=== PATIENT | female | born 1935 | race Caucasian/White ===

== ENCOUNTER 2019-04-21 08:47 | Outpatient (CLI) | payer MEDICARE, SELFPAY ==
[2019-04-21] MEDS: ZOLEDRONIC ACID 5 MG/100 ML 100 ML 300 MG IVPB (09:11)
--- NOTE | 2019-04-21 09:45 | PC.NURSE ---
IV INFUSION COMPLETE. PT DISCHARGED TO HOME. SAFE EXIT OF HOSPITAL.
== END 2019-04-21 08:48 | disposition home or self-care (01) ==
PROVIDERS: PCP Internal Medicine; Visit Provider Internal Medicine
DX: M81.0 Age-related osteoporosis without current pathological fracture (principal)
CPT/HCPCS: 96365; J3489

== ENCOUNTER 2019-08-18 13:20 | Outpatient (CLI) | payer MEDICARE, SELFPAY ==
--- NOTE | ~2019-08-18 | US_ITS ---
EXAMINATION: US carotid duplex BI DATE: 08/18/2019 14:05 INDICATION: Carotid stenosis. TECHNIQUE: Grayscale, color Doppler, and pulsed Doppler images of the cervical carotid arteries were obtained. The degree of vessel stenosis is placed in one of the following categories: normal, <50%, 5 0-69%, >=70% but less than near-occlusion, near-occlusion, or total occlusion. Note that percent sten osis relative to normal distal artery lumen diameter is indirectly measured from velocity measurement s as described by Last, et al. Radiology 2003; 229:340-346. COMPARISON: None. FINDINGS: RIGHT: The right common carotid artery (CCA) peak systolic velocity (PSV) is 100 cm/s. The right internal ca rotid artery (ICA) PSV is 123 cm/s. The right ICA end-diastolic velocity (EDV) is 21 cm/s. The right ICA/CCA PSV ratio is 1.2. Grayscale and color Doppler images yield an estimate of <50% diameter reduc tion from plaque in the ICA. There is antegrade flow in the right vertebral artery. LEFT: The left CCA PSV is 121 cm/s. The left ICA PSV is 114 cm/s. The left ICA EDV is 25 cm/s. The left ICA /CCA PSV ratio is 0.9. Grayscale and color Doppler images yield an estimate of <50% diameter reductio n from plaque in the ICA. There is antegrade flow in the left vertebral artery. IMPRESSION: 1. <50% stenosis in the right internal carotid artery. 2. <50% stenosis in the left internal carotid artery. Reviewed, dictated and finalized at location A.
== END 2019-08-18 13:21 | disposition home or self-care (01) ==
LOC: CHSIMG 13:22
PROVIDERS: PCP Internal Medicine; Visit Provider Internal Medicine
DX: I65.23 Occlusion and stenosis of bilateral carotid arteries (principal)
CPT/HCPCS: 93880

== ENCOUNTER 2019-12-13 07:50 | Outpatient (CLI) | payer MEDICARE, SELFPAY ==
[2019-12-13 08:01] LABS: Basophils Absolute Auto 0.08 K/mm3 (0.00-0.10); Basophils Percent Auto 1.1 % (0.0-1.0); Eosinophils Absolute Auto 0.21 K/mm3 (0.02-0.50); Hematocrit 42.6 % (35.0-42.0); Hemoglobin 13.7 g/dL (11.7-13.8); Immature Granulocyte Absolute 0.02 K/mm3 (0.00-0.00); Immature Granulocyte Percent A 0.3 % (0.0-0.0); Lymphocytes Absolute Auto 1.98 K/mm3 (1.10-4.50); Lymphocytes Percent Auto 28.1 % (18.0-42.0); Mean Corpuscular HGB Conc 32.2 g/dL (32.0-36.0); Mean Corpuscular Volume 90.3 fL (78.0-102.0); Mean Platelet Volume 10.7 fl (9.2-11.8); Monocytes Absolute Auto 0.48 K/mm3 (0.10-0.90); Monocytes Percent Auto 6.8 % (2.0-11.0); Neutrophils Absolute Auto 4.3 K/mm3 (1.7-7.2); Neutrophils Percent Auto 60.7 % (50.0-70.0); Platelet Count Result 191 K/mm3 (150-420); Red Blood Count 4.72 M/mm3 (4.20-5.40); Red Cell Distribution Width 13.4 % (11.6-14.4); White Blood Count 7.1 K/mm3 (4.8-10.8)
[2019-12-13 08:03] LABS: Appearance Urine Cloudy (Clear); Bilirubin Urine Negative (Negative); Color Urine Yellow (Yellow); Glucose Urine UA Negative (Negative); Ketones Urine Negative (Negative); Leukocyte Esterase Ur 3+ (Negative); Nitrate Urine Negative (Negative); Protein Urine Negative (Negative); Urobilinogen Urine 0.2 mg/dL (0.2-1.0)
[2019-12-13 08:09] LABS: Add Urine Microscopic? YES; Blood Urine Trace-Intact (Negative)
[2019-12-13 08:10] LABS: Bacteria Urine 4+ /hpf; Squamous Epithelial Cell Urine Many /hpf (Few); WBC Urine >75 /hpf (0-3)
[2019-12-13 08:13] LABS: Creatinine Urine 164.13 mg/dL (40-278); MALB Creatinine Ratio 42.1 mg/g (0-30); Microalbumin Urine Random 69.2 mg/L
[2019-12-13 09:19] LABS: Alanine Aminotransferase 26 U/L (14-59); Albumin Level 3.9 g/dL (3.4-5.0); Alkaline Phosphatase 44 U/L (46-116); Anion Gap 10 mmol/L (8-16); Aspartate Amino Transferase 12 U/L (15-37); Bilirubin,Total 0.3 mg/dL (0.00-1.00); Blood Urea Nitrogen 19 mg/dL (7-18); Calcium 8.8 mg/dL (8.5-10.1); Carbon Dioxide 29 mmol/L (21-32); Chloride 104 mmol/L (98-108); Cholesterol 137 mg/dL (0-200); Creatine Kinase 45 U/L (26-192); Estimated Glomerular Filt Rate 30; Glucose 92 mg/dL (70-99); HDL Direct 42 mg/dL (40-60); LDL Cholesterol Calculated 80 mg/dL (<130); Osmolality Calculated 298 mOsm/kg (285-295); Potassium 4.3 mmol/L (3.5-5.1); Sodium 143 mmol/L (136-145); Total Protein 6.8 g/dL (6.4-8.2); Triglycerides 73 mg/dL (0-150)
[2019-12-16 11:46] LABS: Vitamin D 25 Hydroxy 41 ng/mL (30-100)
== END 2019-12-13 07:51 | disposition home or self-care (01) ==
LOC: CHSLAB 07:52
PROVIDERS: PCP Internal Medicine; Visit Provider Internal Medicine
DX: I12.9 Hypertensive chronic kidney disease with stage 1 through stage 4 chronic kidney disease, or unspecified chronic kidney disease (principal); E11.22 Type 2 diabetes mellitus with diabetic chronic kidney disease; N18.2 Chronic kidney disease, stage 2 (mild); E11.65 Type 2 diabetes mellitus with hyperglycemia; E78.2 Mixed hyperlipidemia; M81.0 Age-related osteoporosis without current pathological fracture
CPT/HCPCS: 36415; 80053; 80061; 81001; 82043; 82306; 82550; 83036; 85025

== ENCOUNTER 2020-01-18 12:16 | Outpatient (CLI) | payer MEDICARE, SELFPAY ==
[2020-01-18 12:57] LABS: Anion Gap 10 mmol/L (8-16); Blood Urea Nitrogen 19 mg/dL (7-18); Calcium 8.9 mg/dL (8.5-10.1); Carbon Dioxide 27 mmol/L (21-32); Chloride 99 mmol/L (98-108); Estimated Glomerular Filt Rate 32; Glucose 186 mg/dL (70-99); Osmolality Calculated 289 mOsm/kg (285-295); Potassium 4.1 mmol/L (3.5-5.1); Sodium 136 mmol/L (136-145)
== END 2020-01-18 12:17 | disposition home or self-care (01) ==
LOC: CHSLAB 12:17
PROVIDERS: PCP Internal Medicine; Visit Provider Internal Medicine
DX: N18.30 Chronic kidney disease, stage 3 unspecified (principal)
CPT/HCPCS: 36415; 80048

== ENCOUNTER 2020-03-20 09:33 | Outpatient (CLI) | payer MEDICARE, SELFPAY ==
[2020-03-20 10:14] LABS: Anion Gap 7 mmol/L (8-16); Blood Urea Nitrogen 16 mg/dL (7-18); Calcium 8.4 mg/dL (8.5-10.1); Carbon Dioxide 30 mmol/L (21-32); Chloride 103 mmol/L (98-108); Estimated Glomerular Filt Rate 32; Glucose 214 mg/dL (70-99); Osmolality Calculated 297 mOsm/kg (285-295); Potassium 3.9 mmol/L (3.5-5.1); Sodium 140 mmol/L (136-145)
== END 2020-03-20 09:34 | disposition home or self-care (01) ==
LOC: CHSLAB 09:35
PROVIDERS: PCP Internal Medicine; Visit Provider Internal Medicine
DX: R79.89 Other specified abnormal findings of blood chemistry (principal)
CPT/HCPCS: 36415; 80048

== ENCOUNTER 2020-06-10 07:59 | Outpatient (CLI) | payer MEDICARE, SELFPAY ==
[2020-06-10 08:12] LABS: Appearance Urine Cloudy (Clear); Bilirubin Urine 1+ (Negative); Color Urine Yellow (Yellow); Glucose Urine UA Negative (Negative); Ketones Urine Trace (Negative); Leukocyte Esterase Ur 2+ (Negative); Nitrate Urine Negative (Negative); Protein Urine Trace (Negative); Specific Grav Ur >= 1.030 (1.010-1.020); Urobilinogen Urine 0.2 mg/dL (0.2-1.0)
[2020-06-10 08:13] LABS: Basophils Absolute Auto 0.09 K/mm3 (0.00-0.10); Basophils Percent Auto 1.3 % (0.0-1.0); Eosinophils Absolute Auto 0.19 K/mm3 (0.02-0.50); Eosinophils Percent Auto 2.7 % (1.0-6.0); Hematocrit 42.3 % (35.0-42.0); Hemoglobin 13.8 g/dL (11.7-13.8); Immature Granulocyte Absolute 0.01 K/mm3 (0.00-0.00); Immature Granulocyte Percent A 0.1 % (0.0-0.0); Lymphocytes Absolute Auto 1.96 K/mm3 (1.10-4.50); Lymphocytes Percent Auto 27.4 % (18.0-42.0); Mean Corpuscular HGB Conc 32.6 g/dL (32.0-36.0); Mean Corpuscular Hemoglobin 28.7 pg (27.0-31.0); Mean Corpuscular Volume 87.9 fL (78.0-102.0); Mean Platelet Volume 11.2 fl (9.2-11.8); Monocytes Absolute Auto 0.48 K/mm3 (0.10-0.90); Monocytes Percent Auto 6.7 % (2.0-11.0); Neutrophils Absolute Auto 4.4 K/mm3 (1.7-7.2); Neutrophils Percent Auto 61.8 % (50.0-70.0); Platelet Count Result 177 K/mm3 (150-420); Red Blood Count 4.81 M/mm3 (4.20-5.40); Red Cell Distribution Width 13.7 % (11.6-14.4); White Blood Count 7.2 K/mm3 (4.8-10.8)
[2020-06-10 08:17] LABS: Add Urine Microscopic? YES; Bacteria Urine 2+ /hpf; Blood Urine Trace-Lysed (Negative); Squamous Epithelial Cell Urine Many /hpf (Few); WBC Urine 31-50 /hpf (0-3)
[2020-06-10 08:30] LABS: Hemoglobin A1C 7.7 % (<5.7); MALB Creatinine Ratio 20.8 mg/g (0-30); Microalbumin Urine Random 77.9 mg/L
[2020-06-10 10:14] LABS: Alanine Aminotransferase 26 U/L (14-59); Albumin Level 3.7 g/dL (3.4-5.0); Alkaline Phosphatase 51 U/L (46-116); Anion Gap 9 mmol/L (8-16); Aspartate Amino Transferase 15 U/L (15-37); Bilirubin,Total 0.5 mg/dL (0.00-1.00); Blood Urea Nitrogen 24 mg/dL (7-18); Calcium 8.7 mg/dL (8.5-10.1); Carbon Dioxide 27 mmol/L (21-32); Chloride 105 mmol/L (98-108); Cholesterol 155 mg/dL (0-200); Estimated Glomerular Filt Rate 32; Glucose 85 mg/dL (70-99); HDL Direct 41 mg/dL (40-60); LDL Cholesterol Calculated 100 mg/dL (<130); Osmolality Calculated 295 mOsm/kg (285-295); Potassium 4.1 mmol/L (3.5-5.1); Sodium 141 mmol/L (136-145); Total Protein 6.6 g/dL (6.4-8.2); Triglycerides 72 mg/dL (0-150)
[2020-06-13 16:56] LABS: Vitamin D 25 Hydroxy 41 ng/mL (30-100)
== END 2020-06-10 08:00 | disposition home or self-care (01) ==
LOC: CHSLAB 08:01
PROVIDERS: PCP Internal Medicine; Visit Provider Internal Medicine
DX: I10 Essential (primary) hypertension (principal); E78.2 Mixed hyperlipidemia; E11.9 Type 2 diabetes mellitus without complications; M81.0 Age-related osteoporosis without current pathological fracture
CPT/HCPCS: 36415; 80053; 80061; 81001; 82043; 82306; 83036; 85025

== ENCOUNTER 2020-06-19 10:28 | Outpatient (CLI) | payer MEDICARE, SELFPAY ==
--- NOTE | ~2020-06-19 | DEXA_ITS ---
Bone Density Report Name: Marly Ha Age: 84 Sex: Female Ethnicity: White Date of : 1935 Indication: osteopenia; Referring Provider: Charlee Leone Study: Bone densitometry was performed. Exam Date: June 19, 2020 Accession number: [id number] Bone Density: Region BMD T-score Z-score Classification AP Spine(L1, L2, L3) 1.018 0.0 2.7 Normal Femoral Neck (Left) 0.775 -0.7 1.8 Normal Total Hip (Left) 0.789 -1.3 1.0 Osteopenia Femoral Neck (Right) 0.700 -1.3 1.1 Osteopenia Total Hip (Right) 0.788 -1.3 1.0 Osteopenia Femoral Neck Mean 0.737 -1.0 1.5 Normal Total Hip Mean 0.789 -1.3 1.0 Osteopenia World Health Organization criteria for BMD impression classify patients as: Normal (T-score at or above -1.0), Osteopenia (T-score between -1.0 and -2.5), or Osteoporosis (T-score at or below -2.5). 10-year Fracture Risk(1): Major Osteoporotic Fracture 12% Hip Fracture 3.1% Reported Risk Factors: [place] (), Neck BMD=0.700, BMI=22.9 (1) FRAX(R) Version 3.08. Fracture probability calculated for an untreated patient. Fracture probability may be lower if the patient has received treatment. Previous Exams: Region Exam Age BMD T-score BMD Change BMD Change Date g/cm2 vs Baseline vs Previous AP Spine (L1-L3) 06/19/2020 84 1.018 0.0 -0.007 (-0.7%) 0.001 (0.1%)# 03/04/2018 82 1.017 0.0 -0.008 (-0.8%) -0.010 (-1.0%) 01/06/2010 74 1.027 0.1 0.003 (0.3%)! 0.003 (0.3%) 06/08/2006 70 1.025 0.1 Total Hip(Left) 06/19/2020 84 0.789 -1.3 -0.044 (-5.3%) 0.041 (5.4%)# 03/04/2018 82 0.748 -1.6 -0.084 (-10.1% -0.062 (-7.6%) 01/06/2010 74 0.810 -1.1 -0.023 (-2.7%) -0.023 (-2.7%) 06/08/2006 70 0.832 -0.9 Total Hip(Right) 06/19/2020 84 0.788 -1.3 -0.079 (-9.1%) 0.002 (0.2%)# 03/04/2018 82 0.787 -1.3 -0.081 (-9.3%) -0.068 (-7.9%) 01/06/2010 74 0.855 -0.7 -0.013 (-1.5%) -0.013 (-1.5%) 06/08/2006 70 0.868 -0.6 *Denotes significance at 95% confidence level, LSC for AP Spine = 0.022 g/cm2, LSC for Total Hip = 0.027 g/cm2 # Denotes dissimilar scan types or analysis methods Clinical Information Provided by Patient: Drinks caffeinated beverages Onset of menses at age 18 Number of children 3 Impression: The patient has low bone mass, based on the Left Total Hip T-score. No significant bone loss was observed. Discussion: BONE DENSITY
== END 2020-06-19 10:29 | disposition home or self-care (01) ==
LOC: CHSIMG 10:29
PROVIDERS: PCP Internal Medicine; Visit Provider Internal Medicine
DX: M81.0 Age-related osteoporosis without current pathological fracture (principal)
CPT/HCPCS: 77080

== ENCOUNTER 2020-12-11 09:25 | Outpatient (CLI) | payer MEDICARE, SELFPAY ==
[2020-12-11 09:39] LABS: Hematocrit 41.6 % (35.0-42.0); Hemoglobin 13.8 g/dL (11.7-13.8); Mean Corpuscular HGB Conc 33.2 g/dL (32.0-36.0); Mean Corpuscular Hemoglobin 29.2 pg (27.0-31.0); Mean Corpuscular Volume 88.1 fL (78.0-102.0); Mean Platelet Volume 10.7 fl (9.2-11.8); Platelet Count Result 193 K/mm3 (150-420); Red Blood Count 4.72 M/mm3 (4.20-5.40); Red Cell Distribution Width 13.2 % (11.6-14.4); White Blood Count 8.3 K/mm3 (4.8-10.8)
[2020-12-11 09:43] LABS: Appearance Urine Sl Cloudy (Clear); Bilirubin Urine Negative (Negative); Color Urine Yellow (Yellow); Glucose Urine UA Negative (Negative); Ketones Urine Trace (Negative); Leukocyte Esterase Ur 2+ (Negative); Nitrate Urine Negative (Negative); Protein Urine Negative (Negative); Specific Grav Ur >= 1.030 (1.010-1.020); Urobilinogen Urine 0.2 mg/dL (0.2-1.0); pH Urine 5.5 (5.0-8.0)
[2020-12-11 09:50] LABS: Add Urine Microscopic? YES; Blood Urine Trace (Negative); RBC Urine 0-2 /hpf (0-2); Squamous Epithelial Cell Urine Many /hpf (Few); WBC Urine 21-30 /hpf (0-3)
[2020-12-11 09:51] LABS: Bacteria Urine 1+ /hpf
[2020-12-11 09:53] LABS: MALB Creatinine Ratio 15.5 mg/g (0-30); Microalbumin Urine Random 49.9 mg/L
[2020-12-11 09:54] LABS: Hemoglobin A1C 7.5 % (<5.7)
[2020-12-11 10:53] LABS: Alanine Aminotransferase 31 U/L (14-59); Albumin Level 3.8 g/dL (3.4-5.0); Alkaline Phosphatase 57 U/L (46-116); Anion Gap 11 mmol/L (8-16); Aspartate Amino Transferase 12 U/L (15-37); Bilirubin,Total 0.4 mg/dL (0.00-1.00); Blood Urea Nitrogen 32 mg/dL (7-18); Calcium 8.7 mg/dL (8.5-10.1); Carbon Dioxide 28 mmol/L (21-32); Chloride 106 mmol/L (98-108); Cholesterol 157 mg/dL (0-200); Creatine Kinase 49 U/L (26-192); Estimated Glomerular Filt Rate 31; Glucose 112 mg/dL (70-99); HDL Direct 36 mg/dL (40-60); LDL Cholesterol Calculated 106 mg/dL (<130); Osmolality Calculated 307 mOsm/kg (285-295); Potassium 4.1 mmol/L (3.5-5.1); Sodium 145 mmol/L (136-145); Total Protein 7.3 g/dL (6.4-8.2); Triglycerides 73 mg/dL (0-150)
== END 2020-12-11 09:26 | disposition home or self-care (01) ==
LOC: CHSLAB 09:29
PROVIDERS: PCP Internal Medicine; Visit Provider Internal Medicine
DX: E11.65 Type 2 diabetes mellitus with hyperglycemia (principal); I12.9 Hypertensive chronic kidney disease with stage 1 through stage 4 chronic kidney disease, or unspecified chronic kidney disease; N18.30 Chronic kidney disease, stage 3 unspecified; E78.2 Mixed hyperlipidemia; M81.0 Age-related osteoporosis without current pathological fracture
CPT/HCPCS: 36415; 80053; 80061; 81001; 82043; 82550; 83036; 85027

== ENCOUNTER 2021-01-22 09:54 | Outpatient (CLI) | payer MEDICARE, SELFPAY ==
[2021-01-22 10:14] VITALS: BP 163/48; PULSE 83; RESP 18; TEMP 36; O2SAT 97; BMI 22.6
[2021-01-22] MEDS: ZOLEDRONIC ACID 5 MG/100 ML 100 ML 400 MG IVPB (10:16)
--- NOTE | 2021-01-22 10:41 | PC.NURSE ---
Patient here for iv infusion of Reclast. 22#gauge IV started in right AC. Infusion ran over 20mins. Patient tolerated well. Educated patient on side effects and when to call the physician. Patient verbalized understanding. After 20mins, flushed IV site with 10cc NS then removed IV catheter. Patient denies and side effects. Tolerated infusion well. Patient safely left OP treatment room independently.
== END 2021-01-22 09:55 | disposition home or self-care (01) ==
LOC: CHSTREATRM 09:59
PROVIDERS: PCP Internal Medicine; Visit Provider Internal Medicine
DX: M81.0 Age-related osteoporosis without current pathological fracture (principal)
CPT/HCPCS: 96365; J3489

== ENCOUNTER 2021-06-26 08:11 | Outpatient (CLI) | payer MEDICARE, SELFPAY ==
[2021-06-26 08:25] LABS: Basophils Absolute Auto 0.09 K/mm3 (0.00-0.10); Basophils Percent Auto 1.2 % (0.0-1.0); Eosinophils Absolute Auto 0.17 K/mm3 (0.02-0.50); Eosinophils Percent Auto 2.4 % (1.0-6.0); Hematocrit 40.7 % (35.0-42.0); Hemoglobin 13.2 g/dL (11.7-13.8); Immature Granulocyte Absolute 0.02 K/mm3 (0.00-0.00); Immature Granulocyte Percent A 0.3 % (0.0-0.0); Lymphocytes Absolute Auto 2.18 K/mm3 (1.10-4.50); Lymphocytes Percent Auto 30.2 % (18.0-42.0); Mean Corpuscular HGB Conc 32.4 g/dL (32.0-36.0); Mean Corpuscular Hemoglobin 29.8 pg (27.0-31.0); Mean Corpuscular Volume 91.9 fL (78.0-102.0); Mean Platelet Volume 10.9 fl (9.2-11.8); Monocytes Absolute Auto 0.57 K/mm3 (0.10-0.90); Monocytes Percent Auto 7.9 % (2.0-11.0); Neutrophils Absolute Auto 4.2 K/mm3 (1.7-7.2); Platelet Count Result 185 K/mm3 (150-420); Red Blood Count 4.43 M/mm3 (4.20-5.40); Red Cell Distribution Width 13.6 % (11.6-14.4); White Blood Count 7.2 K/mm3 (4.8-10.8)
[2021-06-26 08:27] LABS: Appearance Urine Slightly Cloudy (Clear); Bilirubin Urine Negative (Negative); Color Urine Light Yellow (Yellow); Glucose Urine UA Negative (Negative); Ketones Urine Negative (Negative); Leukocyte Esterase Ur 2+ (Negative); Nitrate Urine Negative (Negative); Protein Urine Negative (Negative); Specific Grav Ur >= 1.030 (1.010-1.020); Urobilinogen Urine 0.2 mg/dL (0.2-1.0)
[2021-06-26 08:30] LABS: Add Urine Microscopic? YES; Bacteria Urine Trace /hpf; Blood Urine Trace-Intact (Negative); RBC Urine 0-2 /hpf (0-2); Squamous Epithelial Cell Urine Moderate /hpf (Few)
[2021-06-26 08:48] LABS: Creatinine Urine 232.72 mg/dL (40-278); Microalbumin Urine Random 42.1 mg/L
[2021-06-26 08:49] LABS: Hemoglobin A1C 7.3 % (<5.7)
[2021-06-26 09:10] LABS: Alanine Aminotransferase 24 U/L (14-59); Albumin Level 3.7 g/dL (3.4-5.0); Alkaline Phosphatase 51 U/L (46-116); Anion Gap 7 mmol/L (8-16); Aspartate Amino Transferase 13 U/L (15-37); Bilirubin,Total 0.3 mg/dL (0.00-1.00); Blood Urea Nitrogen 21 mg/dL (7-18); Calcium 8.6 mg/dL (8.5-10.1); Carbon Dioxide 27 mmol/L (21-32); Chloride 107 mmol/L (98-108); Cholesterol 141 mg/dL (0-200); Creatine Kinase 61 U/L (26-192); Estimated Glomerular Filt Rate 32; Glucose 77 mg/dL (70-99); HDL Direct 39 mg/dL (40-60); LDL Cholesterol Calculated 92 mg/dL (<130); Osmolality Calculated 294 mOsm/kg (285-295); Potassium 4.1 mmol/L (3.5-5.1); Sodium 141 mmol/L (136-145); Total Protein 6.9 g/dL (6.4-8.2); Triglycerides 48 mg/dL (0-150)
[2021-07-01 20:08] LABS: Vitamin D 25 Hydroxy 42 ng/mL (30-100)
== END 2021-06-26 08:12 | disposition home or self-care (01) ==
PROVIDERS: PCP Internal Medicine; Visit Provider Internal Medicine
DX: E78.2 Mixed hyperlipidemia (principal); I12.9 Hypertensive chronic kidney disease with stage 1 through stage 4 chronic kidney disease, or unspecified chronic kidney disease; N18.30 Chronic kidney disease, stage 3 unspecified; E11.65 Type 2 diabetes mellitus with hyperglycemia
CPT/HCPCS: 36415; 80053; 80061; 81001; 82043; 82306; 82550; 83036; 85025

== ENCOUNTER 2021-08-14 13:42 | Outpatient (CLI) | payer MEDICARE, SELFPAY ==
--- NOTE | 2021-08-14 13:45 | ECG_ITS ---
Measurements Intervals Lucas Rate: 92 P: 64 AK: 175 QRS: 119 QRSD: 130 T: 9 QT: 388 QTc: 482 Interpretive Statements SINUS RHYTHM RIGHT BUNDLE BRANCH BLOCK LEFT POSTERIOR FASCICULAR BLOCK BASELINE ARTIFACT- I, II, III, AVR, AVL, AVF ABNORMAL ECG Electronically Signed On 08-14-2021 14:00:07 CDT by Brad Rene D.O.
== END 2021-08-14 13:43 | disposition home or self-care (01) ==
PROVIDERS: PCP Internal Medicine; Visit Provider Internal Medicine Cardiovascular Disease
DX: R06.00 Dyspnea, unspecified (principal)
CPT/HCPCS: 93005

== ENCOUNTER 2021-09-17 06:56 | Outpatient (CLI) | payer MEDICARE, SELFPAY ==
--- NOTE | ~2021-09-17 | NM_ITS ---
EXAMINATION: NM ant stress w perfusion DATE: 09/17/2021 10:11 INDICATION: Dyspnea on exertion. TECHNIQUE: Rest images were obtained following intravenous administration of 12.5 mCi Tc99m tetrofosm in (Myoview). The patient was infused intravenously with Lexiscan (regadenoson). Then, 30 mCi Tc99m t etrofosmin (Myoview) was administered intravenously, and stress images were obtained. Data was recons tructed into short axis and horizontal and vertical long axis SPECT images. Gated SPECT images were a lso obtained. COMPARISON: None. FINDINGS: There is no definite reversible or fixed perfusion abnormality to suggest ischemia or infar ction. There is no segmental wall motion abnormality. Left ventricular ejection fraction measures > 70%. IMPRESSION: 1. No definite ischemia or infarct. 2. Normal left ventricular ejection fraction measuring >70%. Reviewed, dictated and finalized at location A.
--- NOTE | 2021-09-17 07:03 | ECHO_ITS ---
Patient Info Name: Marly Ha Age: 85 years : 1935 Gender: Female Ht: 62 in Wt: 127 lbs BSA: 1.59 m2 HR: 85 bpm BP: 147 / 79 mmHg Heart Rhythm: Sinus Rhythm Technical Quality: Fair Exam Date: 09/17/2021 7:18 AM Exam Location: [facility] Patient Status: Outpatient Admit Date: 09/17/2021 Staff Ordering Physician: Brad Rene DO Dog Control Officer: Josy Rodríguez RDCS Attending Provider: Brad Rene DO Referring Physician: Edgard WARE; Exam Type: CA echo doppler color flow Study Info Indications R06.00 - Dyspnea, unspecified Complete two-dimensional, color flow and Doppler transthoracic echocardiogram is performed. Summary 1. Complete two-dimensional, color flow and Doppler transthoracic echocardiogram is performed. 2. Left ventricular chamber dimension is normal. 3. Left ventricular systolic function is normal, estimated at 60-65%. 4. The left ventricular diastolic function is grade I diastolic dysfunction. 5. E/e' 11 is mildly elevated. 6. There is mild aortic valve sclerosis. 7. There is trace mitral valve regurgitation. 8. No pulmonary hypertension, estimated pulmonary arterial systolic pressure is 26 mmHg. Left Ventricle E/e' 11 is mildly elevated. Left ventricular chamber dimension is normal. Left ventricular systolic function is normal, estimated at 60-65%. The left ventricular diastolic function is grade I diastolic dysfunction. Right Ventricle Right ventricular systolic function is normal and with normal TAPSE 2.1 cm. Right ventricular chamber dimension is normal. Left Atria Left atrial chamber dimension is normal. Right Atria Right atrial chamber dimension is normal. Aortic Valve The aortic valve is trileaflet. There is mild aortic valve sclerosis. There is no aortic valve stenosis. There is no aortic valve regurgitation. Pulmonic Valve There is no pulmonic regurgitation. Mitral Valve There is no mitral valve stenosis. There is trace mitral valve regurgitation. Tricuspid Valve There is no tricuspid valve regurgitation. No pulmonary hypertension, estimated pulmonary arterial systolic pressure is 26 mmHg. Pericardium/Pleural There is no pericardial effusion. Inferior Vena Cava Normal inferior vena cava with >50% collapse upon inspiration consistent with normal right atrial pressure, 5 mmHg. Aorta The aortic root size at the sinus of Valsalva is normal. Left Ventricular Outflow Tract Name Value Normal LVOT 2D LVOT Diameter 2.0 cm LVOT Doppler LVOT Peak Gradient 3 mmHg LVOT Mean Gradient 1 mmHg LVOT VTI 19 cm LVOT VTI/AV VTI Ratio 0.7 LVOT Stroke Volume 59 ml LVOT CO 10.5 l/min LVOT CI 6.6 l/min/m2 Pulmonic Valve Name Value Normal RVOT
--- NOTE | 2021-09-17 07:32 | EST_ITS ---
Patient Info Name: Marly Ha Age: 85 years : 1935 Gender: Female Ht: 62 in Wt: 127 lbs BSA: 1.59 m2 HR: 73 bpm BP: 157 / 53 mmHg Heart Rhythm: Sinus Rhythm Exam Date: 09/17/2021 8:45 AM Exam Location: [facility] Stress Patient Status: Outpatient Admit Date: 09/17/2021 Staff Ordering Physician: Brad Rene DO Attending Provider: Brad Rene DO Exercise Technologist: Cristina Glover CT Exercise Physician: Brad Rene DO Exam Type: CA stress ant w NM Study Info Indications R06.09 - Other forms of dyspnea A regadenoson stress test was performed. Summary 1. 1. Negative lexiscan stress test for ischemic ST changes by ECG criteria. 2. 2. Baseline hypertension. 3. 3. Nuclear scan to follow and will be reported separately. Please correlate with it. 4. 4. Patient informed of the above results. Protocol: Lexiscan Stress ECG Details Stage: REST Duration (min): 4 min : 37 sec HR (bpm): 76 SBP (mmHg): 157 DBP (mmHg): 53 Stage: REST Duration (min): 9 min : 8 sec HR (bpm): 72 SBP (mmHg): 157 DBP (mmHg): 53 Stage: STAGE 1 Duration (min): 1 min : 0 sec HR (bpm): 96 SBP (mmHg): 157 DBP (mmHg): 53 Stage: RECOVERY Duration (min): 1 min : 0 sec HR (bpm): 95 SBP (mmHg): 162 DBP (mmHg): 46 Stage: RECOVERY Duration (min): 2 min : 0 sec HR (bpm): 94 SBP (mmHg): 162 DBP (mmHg): 46 Stage: RECOVERY Duration (min): 3 min : 0 sec HR (bpm): 90 SBP (mmHg): 150 DBP (mmHg): 49 Stage: RECOVERY Duration (min): 3 min : 53 sec HR (bpm): 90 SBP (mmHg): 150 DBP (mmHg): 49 Rest HR: 72 bpm Peak HR: 99 bpm Rest Sys BP: 157 mmHg Peak Sys BP: 162 mmHg Max Pred HR: 136 bpm % Max Pred HR: 73 % Target HR: 116 bpm Max RPP: 16,038 bpm*mmHg Termination Reason: Completed protocol Cardiac Symptoms: dizziness Total Time: 1 min : 0 sec Rest Davis BP: 53 mmHg Peak Davis BP: 46 mmHg Total Dose: 0.4 mg Resting ECG Sinus rhythm, RBBB. Stress ECG No ST changes. Arrhythmias None. Report Signatures
== END 2021-09-17 06:57 | disposition home or self-care (01) ==
PROVIDERS: PCP Internal Medicine; Visit Provider Internal Medicine Cardiovascular Disease
DX: I12.9 Hypertensive chronic kidney disease with stage 1 through stage 4 chronic kidney disease, or unspecified chronic kidney disease (principal); N18.31 Chronic kidney disease, stage 3a; R06.00 Dyspnea, unspecified; E83.51 Hypocalcemia; E87.6 Hypokalemia; R77.8 Other specified abnormalities of plasma proteins; I73.9 Peripheral vascular disease, unspecified
CPT/HCPCS: 78452; 93017; 93306; A9502; J2785

== ENCOUNTER 2021-12-16 07:49 | Outpatient (CLI) | payer MEDICARE, SELFPAY ==
[2021-12-16 08:08] LABS: Basophils Absolute Auto 0.07 K/mm3 (0.00-0.10); Basophils Percent Auto 1.2 % (0.0-1.0); Eosinophils Percent Auto 3.4 % (1.0-6.0); Hematocrit 38.4 % (35.0-42.0); Hemoglobin 12.8 g/dL (11.7-13.8); Immature Granulocyte Absolute 0.02 K/mm3 (0.00-0.00); Immature Granulocyte Percent A 0.3 % (0.0-0.0); Lymphocytes Absolute Auto 1.59 K/mm3 (1.10-4.50); Lymphocytes Percent Auto 26.7 % (18.0-42.0); Mean Corpuscular HGB Conc 33.3 g/dL (32.0-36.0); Mean Corpuscular Hemoglobin 29.4 pg (27.0-31.0); Mean Corpuscular Volume 88.3 fL (78.0-102.0); Mean Platelet Volume 10.8 fl (9.2-11.8); Monocytes Percent Auto 8.4 % (2.0-11.0); Neutrophils Absolute Auto 3.6 K/mm3 (1.7-7.2); Platelet Count Result 164 K/mm3 (150-420); Red Blood Count 4.35 M/mm3 (4.20-5.40); Red Cell Distribution Width 13.8 % (11.6-14.4)
[2021-12-16 08:11] LABS: Bilirubin Urine Negative (Negative); Glucose Urine UA Negative (Negative); Ketones Urine Trace (Negative); Leukocyte Esterase Ur 2+ (Negative); Nitrate Urine Negative (Negative); Protein Urine Negative (Negative); Specific Grav Ur >= 1.030 (1.010-1.020); Urobilinogen Urine 0.2 mg/dL (0.2-1.0)
[2021-12-16 08:15] LABS: Add Urine Microscopic? YES; Appearance Urine Slightly Cloudy (Clear); Bacteria Urine 1+ /hpf; Blood Urine Trace-Intact (Negative); Color Urine Yellow (Yellow); RBC Urine None seen /hpf (0-2); Squamous Epithelial Cell Urine Many /hpf (Few); WBC Urine 21-30 /hpf (0-3)
[2021-12-16 08:27] LABS: Hemoglobin A1C 7.2 % (<5.7)
[2021-12-16 09:02] LABS: Alanine Aminotransferase 23 U/L (14-59); Albumin Level 3.5 g/dL (3.4-5.0); Alkaline Phosphatase 50 U/L (46-116); Anion Gap 6 mmol/L (8-16); Aspartate Amino Transferase 11 U/L (15-37); Bilirubin,Total 0.3 mg/dL (0.00-1.00); Blood Urea Nitrogen 23 mg/dL (7-18); Calcium 8.3 mg/dL (8.5-10.1); Carbon Dioxide 28 mmol/L (21-32); Chloride 109 mmol/L (98-108); Cholesterol 151 mg/dL (0-200); Creatine Kinase 99 U/L (26-192); Estimated Glomerular Filt Rate 37; Free T3 2.69 pg/mL (2.18-3.98); Free T4 Free Thyroxine 1.12 ng/dL (0.76-1.46); Glucose 104 mg/dL (70-99); HDL Direct 42 mg/dL (40-60); LDL Cholesterol Calculated 92 mg/dL (<130); Osmolality Calculated 299 mOsm/kg (285-295); Sodium 143 mmol/L (136-145); Thyroid Stimulating Hormone 2.96 uIU/mL (0.36-3.74); Total Protein 6.4 g/dL (6.4-8.2); Triglycerides 84 mg/dL (0-150); Vitamin B12 542 pg/mL (193-986)
[2021-12-19 23:17] LABS: Vitamin D 25 Hydroxy 44 ng/mL (30-100)
== END 2021-12-16 07:50 | disposition home or self-care (01) ==
LOC: CHSLAB 07:52
PROVIDERS: PCP Internal Medicine; Visit Provider Internal Medicine
DX: M81.0 Age-related osteoporosis without current pathological fracture (principal); E11.610 Type 2 diabetes mellitus with diabetic neuropathic arthropathy; I10 Essential (primary) hypertension; E78.2 Mixed hyperlipidemia; E11.42 Type 2 diabetes mellitus with diabetic polyneuropathy
CPT/HCPCS: 36415; 80053; 80061; 81001; 82306; 82550; 82607; 83036; 84439; 84443; 84481; 85025

== ENCOUNTER 2022-01-27 13:36 | Outpatient (CLI) | payer MEDICARE, SELFPAY ==
--- NOTE | 2022-01-27 13:45 | PC.NURSE ---
PT to room 227 amb per self. A&Ox3. Pt has now complaints or questions. Plan of care explained. Oriented to room. Call vicente in reach. Reminded to call with needs.
[2022-01-27] MEDS: ZOLEDRONIC ACID 5 MG/100 ML 100 ML 400 MG IVPB (13:59)
--- NOTE | 2022-01-27 14:31 | PC.NURSE ---
Reclast infusion complete. Pt tolerated well. Has no complaints. Discharged to home amb per self.
== END 2022-01-27 13:37 | disposition home or self-care (01) ==
LOC: CHSTREATRM 13:40
PROVIDERS: PCP Internal Medicine; Visit Provider Internal Medicine
DX: M81.0 Age-related osteoporosis without current pathological fracture (principal)
CPT/HCPCS: 96365; J3489

== ENCOUNTER 2022-07-02 09:14 | Outpatient (CLI) | payer MEDICARE, SELFPAY ==
[2022-07-02 09:30] LABS: Basophils Absolute Auto 0.09 K/mm3 (0.00-0.10); Basophils Percent Auto 1.3 % (0.0-1.0); Eosinophils Absolute Auto 0.15 K/mm3 (0.02-0.50); Eosinophils Percent Auto 2.2 % (1.0-6.0); Hematocrit 42.8 % (35.0-42.0); Hemoglobin 13.8 g/dL (11.7-13.8); Immature Granulocyte Absolute 0.02 K/mm3 (0.00-0.00); Immature Granulocyte Percent A 0.3 % (0.0-0.0); Mean Corpuscular HGB Conc 32.2 g/dL (32.0-36.0); Mean Corpuscular Hemoglobin 28.7 pg (27.0-31.0); Mean Platelet Volume 10.2 fl (9.2-11.8); Monocytes Absolute Auto 0.44 K/mm3 (0.10-0.90); Monocytes Percent Auto 6.5 % (2.0-11.0); Neutrophils Absolute Auto 4.4 K/mm3 (1.7-7.2); Neutrophils Percent Auto 64.7 % (50.0-70.0); Platelet Count Result 200 K/mm3 (150-420); Red Blood Count 4.81 M/mm3 (4.20-5.40); Red Cell Distribution Width 13.5 % (11.6-14.4); White Blood Count 6.8 K/mm3 (4.8-10.8)
[2022-07-02 09:36] LABS: Appearance Urine Clear (Clear); Bilirubin Urine Negative (Negative); Blood Urine Negative (Negative); Color Urine Light Yellow (Yellow); Glucose Urine UA Negative (Negative); Ketones Urine Negative (Negative); Leukocyte Esterase Ur 2+ (Negative); Nitrate Urine Negative (Negative); Protein Urine Negative (Negative); Urobilinogen Urine 0.2 mg/dL (0.2-1.0); pH Urine 5.5 (5.0-8.0)
[2022-07-02 09:41] LABS: Creatinine Urine 122.08 mg/dL (40-278); MALB Creatinine Ratio 11.1 mg/g (0-30); Microalbumin Urine Random 13.6 mg/L
[2022-07-02 09:43] LABS: Hemoglobin A1C 7.4 % (<5.7)
[2022-07-02 09:50] LABS: Add Urine Microscopic? YES
[2022-07-02 09:51] LABS: Bacteria Urine 1+ /hpf; RBC Urine None seen /hpf (0-2); Renal Epithelial Cells Urine Few /hpf; Squamous Epithelial Cell Urine Few /hpf (Few); WBC Clumps Urine Present /hpf; WBC Urine 16-20 /hpf (0-3)
[2022-07-02 10:54] LABS: Alanine Aminotransferase 32 U/L (14-59); Albumin Level 3.7 g/dL (3.4-5.0); Alkaline Phosphatase 54 U/L (46-116); Anion Gap 8 mmol/L (8-16); Aspartate Amino Transferase 19 U/L (15-37); Bilirubin,Total 0.3 mg/dL (0.00-1.00); Blood Urea Nitrogen 25 mg/dL (7-18); Calcium 8.8 mg/dL (8.5-10.1); Carbon Dioxide 29 mmol/L (21-32); Chloride 108 mmol/L (98-108); Cholesterol 144 mg/dL (0-200); Creatine Kinase 62 U/L (26-192); Estimated Glomerular Filt Rate 33; Glucose 119 mg/dL (70-99); HDL Direct 40 mg/dL (40-60); LDL Cholesterol Calculated 85 mg/dL (<130); Osmolality Calculated 305 mOsm/kg (285-295); Potassium 4.4 mmol/L (3.5-5.1); Sodium 145 mmol/L (136-145); Total Protein 6.9 g/dL (6.4-8.2); Triglycerides 93 mg/dL (0-150)
== END 2022-07-02 09:15 | disposition home or self-care (01) ==
LOC: CHSLAB 09:18
PROVIDERS: PCP Internal Medicine; Visit Provider Internal Medicine
DX: I10 Essential (primary) hypertension (principal); E11.65 Type 2 diabetes mellitus with hyperglycemia; N18.2 Chronic kidney disease, stage 2 (mild); E78.2 Mixed hyperlipidemia
CPT/HCPCS: 36415; 80053; 80061; 81001; 82043; 82550; 83036; 85025

== ENCOUNTER 2022-07-31 11:41 | Outpatient (CLI) | payer MEDICARE, MEDICAID, SELFPAY ==
--- NOTE | ~2022-07-31 | DEXA_ITS ---
Bone Density Report Name: SIVA RAMIREZ Age: 86 Sex: Female Ethnicity: White Date of : 1935 Indication: postmenopausal; screening for osteoporosis; height loss; cancer; hysterectomy; Referring Provider: Charlee Leone Study: Bone densitometry was performed. Exam Date: July 31, 2022 Accession number: [id number] Bone Density: Region BMD T-score Z-score Classification AP Spine(L2, L3) 1.144 0.8 3.7 Normal Femoral Neck (Left) 0.738 -1.0 1.5 Normal Total Hip (Left) 0.793 -1.2 1.1 Osteopenia Femoral Neck (Right) 0.739 -1.0 1.5 Normal Total Hip (Right) 0.819 -1.0 1.3 Normal Femoral Neck Mean 0.738 -1.0 1.5 Normal Total Hip Mean 0.806 -1.1 1.2 Osteopenia World Health Organization criteria for BMD impression classify patients as: Normal (T-score at or above -1.0), Osteopenia (T-score between -1.0 and -2.5), or Osteoporosis (T-score at or below -2.5). 10-year Fracture Risk: FRAX not reported because: Treated for osteoporosis Clinical Information Provided by Patient: Is being treated for osteoporosis Has used the following medications: Reclast (i.e. zoledronate), Vitamin D Has the following medical conditions: Cancer, Hysterectomy Patient maximum height was 62 Menopause Age: 53 Does not regularly consume dairy products Onset of menses at age 18 Number of children 3 Impression: The patient has low bone mass, based on the Left Total Hip T-score. Discussion: It is important to ask patients whether they are taking their medications and to encourage continued and appropriate compliance with their osteoporosis therapies to reduce fracture risk. It is also important to review their risk factors and encourage appropriate calcium and vitamin D intakes, exercise, fall prevention and other lifestyle measures. Follow-Up: Consider a repeat BMD and Vertebral Fracture Assessment (VFA) exam in 2 years or sooner if medically necessary, to reassess this patient's status. Reported by: Dr. Michael Chris on 07/31/2022 12:05:00 PM. Reviewed, dictated and finalized at location AAzar GUTIERREZ
== END 2022-07-31 11:42 | disposition home or self-care (01) ==
LOC: CHSIMG 11:44
PROVIDERS: PCP Internal Medicine; Visit Provider Internal Medicine
DX: Z78.0 Asymptomatic menopausal state (principal); M85.88 Other specified disorders of bone density and structure, other site
CPT/HCPCS: 77080

== ENCOUNTER 2022-08-25 11:09 | Outpatient (CLI) | payer MEDICARE, SELFPAY ==
[2022-08-25 12:04] LABS: Anion Gap 9 mmol/L (8-16); Blood Urea Nitrogen 17 mg/dL (7-18); Calcium 8.6 mg/dL (8.5-10.1); Carbon Dioxide 26 mmol/L (21-32); Chloride 106 mmol/L (98-108); Estimated Glomerular Filt Rate 30; Glucose 202 mg/dL (70-99); Osmolality Calculated 299 mOsm/kg (285-295); Potassium 4.3 mmol/L (3.5-5.1); Sodium 141 mmol/L (136-145)
== END 2022-08-25 11:10 | disposition home or self-care (01) ==
LOC: CHSLAB 11:11
PROVIDERS: PCP Internal Medicine; Visit Provider Internal Medicine
DX: N18.4 Chronic kidney disease, stage 4 (severe) (principal)
CPT/HCPCS: 36415; 80048

== ENCOUNTER 2022-08-27 16:46 | Outpatient (CLI) | payer MEDICARE, SELFPAY ==
[2022-08-27 17:22] LABS: Basophils Percent Auto 1.4 % (0.0-1.0); Eosinophils Absolute Auto 0.16 K/mm3 (0.02-0.50); Eosinophils Percent Auto 2.2 % (1.0-6.0); Hematocrit 38.2 % (35.0-42.0); Hemoglobin 12.4 g/dL (11.7-13.8); Immature Granulocyte Absolute 0.03 K/mm3 (0.00-0.00); Immature Granulocyte Percent A 0.4 % (0.0-0.0); Lymphocytes Absolute Auto 1.61 K/mm3 (1.10-4.50); Lymphocytes Percent Auto 22.5 % (18.0-42.0); Mean Corpuscular HGB Conc 32.5 g/dL (32.0-36.0); Mean Corpuscular Hemoglobin 28.8 pg (27.0-31.0); Mean Corpuscular Volume 88.6 fL (78.0-102.0); Neutrophils Absolute Auto 4.8 K/mm3 (1.7-7.2); Neutrophils Percent Auto 66.5 % (50.0-70.0); Platelet Count Result 181 K/mm3 (150-420); Red Blood Count 4.31 M/mm3 (4.20-5.40); Red Cell Distribution Width 13.9 % (11.6-14.4); White Blood Count 7.2 K/mm3 (4.8-10.8)
[2022-08-27 17:35] LABS: CRP < 0.5 mg/dL (0.0-0.9)
[2022-08-27 18:07] LABS: Erythrocyte Sedimentation Rate 5 mm/hr (0-20)
[2022-08-31 13:03] LABS: Alpha 1 Globulin 0.3 g/dL (0.2-0.3); Alpha 2 Globulin 0.6 g/dL (0.5-0.9); Beta 1 Globulin 0.4 g/dL (0.4-0.6); Gamma Globulin 0.8 g/dL (0.8-1.7); Protein, Total 6.4 g/dL (6.1-8.1)
[2022-08-31 19:36] LABS: Complement Total CH50 48 U/mL (31-60)
[2022-09-01 09:12] LABS: Complement C3 108 mg/dL (***)
[2022-09-01 20:32] LABS: Kappa\\Lambda Light Chains 1.49 (0.26-1.65); Lambda Light Chain 15.4 mg/L (5.7-26.3)
[2022-09-03 02:48] LABS: Creatinine, Random Urine 115 mg/dL (20-275); Total Protein/Creatinine Ratio 122 mg/g creat (24-184)
== END 2022-08-27 16:47 | disposition home or self-care (01) ==
LOC: CHSLAB 16:48
PROVIDERS: PCP Internal Medicine; Visit Provider Internal Medicine
DX: I12.9 Hypertensive chronic kidney disease with stage 1 through stage 4 chronic kidney disease, or unspecified chronic kidney disease (principal); N18.4 Chronic kidney disease, stage 4 (severe)
CPT/HCPCS: 36415; 82570; 83883; 84155; 84156; 84165; 84166; 85025; 85652; 86038; 86140; 86160; 86162; 86334

== ENCOUNTER 2022-09-04 12:17 | Outpatient (CLI) | payer MEDICARE, MEDICAID, SELFPAY ==
--- NOTE | ~2022-09-04 | US_ITS ---
US retroperitoneal comp 09/04/2022 12:47 Procedure: Realtime transabdominal ultrasound of the kidneys and bladder. Indication: Abnormal renal labs. Hematuria. Comparison: Ultrasound dated 05/11/2013 Findings: Renal echotexture is normal bilaterally without hydronephrosis, contour deforming mass or r enal calculus. There is a right renal cyst measuring 2.4 cm anterior laterally. The right kidney tai ures 8 cm and left kidney measures 9.1 cm. Bladder within normal limits. Impression: 1: Right renal cyst measuring 2.4 cm. Reviewed, dictated and finalized at location A. Impression: 1: Right renal cyst measuring 2.4 cm.
== END 2022-09-04 12:18 | disposition home or self-care (01) ==
LOC: CHSIMG 12:18
PROVIDERS: PCP Internal Medicine; Visit Provider Internal Medicine
DX: I12.9 Hypertensive chronic kidney disease with stage 1 through stage 4 chronic kidney disease, or unspecified chronic kidney disease (principal); N18.4 Chronic kidney disease, stage 4 (severe); N28.1 Cyst of kidney, acquired
CPT/HCPCS: 76770

== ENCOUNTER 2022-10-13 09:51 | Outpatient (CLI) | payer MEDICARE, SELFPAY ==
[2022-10-13 10:31] LABS: Anion Gap 6 mmol/L (8-16); Blood Urea Nitrogen 23 mg/dL (7-18); Calcium 8.5 mg/dL (8.5-10.1); Carbon Dioxide 29 mmol/L (21-32); Chloride 104 mmol/L (98-108); Estimated Glomerular Filt Rate 26; Glucose 264 mg/dL (70-99); Osmolality Calculated 300 mOsm/kg (285-295); Potassium 4.6 mmol/L (3.5-5.1); Sodium 139 mmol/L (136-145)
== END 2022-10-13 09:52 | disposition home or self-care (01) ==
PROVIDERS: PCP Internal Medicine; Visit Provider Internal Medicine
DX: E86.0 Dehydration (principal)
CPT/HCPCS: 36415; 80048

== ENCOUNTER 2023-01-14 08:11 | Outpatient (CLI) | payer MEDICARE, SELFPAY ==
[2023-01-14 08:28] LABS: Appearance Urine Slightly Cloudy (Clear); Bilirubin Urine Negative (Negative); Blood Urine Negative (Negative); Color Urine Light Yellow (Yellow); Glucose Urine UA Negative (Negative); Ketones Urine Negative (Negative); Leukocyte Esterase Ur 2+ LEU/UL (Negative); Nitrate Urine Negative (Negative); Protein Urine Negative (Negative); Specific Grav Ur 1.025 (1.010-1.020); Urobilinogen Urine 0.2 mg/dL (0.2-1.0); pH Urine 5.5 (5.0-8.0)
[2023-01-14 08:30] LABS: Basophils Percent Auto 1.2 % (0.0-1.0); Eosinophils Absolute Auto 0.18 K/mm3 (0.02-0.50); Eosinophils Percent Auto 2.2 % (1.0-6.0); Hematocrit 41.2 % (35.0-42.0); Hemoglobin 13.4 g/dL (11.7-13.8); Immature Granulocyte Absolute 0.02 K/mm3 (0.00-0.00); Immature Granulocyte Percent A 0.2 % (0.0-0.0); Lymphocytes Absolute Auto 1.64 K/mm3 (1.10-4.50); Lymphocytes Percent Auto 19.7 % (18.0-42.0); Mean Corpuscular HGB Conc 32.5 g/dL (32.0-36.0); Mean Corpuscular Hemoglobin 29.1 pg (27.0-31.0); Mean Corpuscular Volume 89.6 fL (78.0-102.0); Mean Platelet Volume 10.9 fl (9.2-11.8); Monocytes Absolute Auto 0.51 K/mm3 (0.10-0.90); Monocytes Percent Auto 6.1 % (2.0-11.0); Neutrophils Absolute Auto 5.9 K/mm3 (1.7-7.2); Neutrophils Percent Auto 70.6 % (50.0-70.0); Platelet Count Result 193 K/mm3 (150-420); White Blood Count 8.3 K/mm3 (4.8-10.8)
[2023-01-14 08:34] LABS: Add Urine Microscopic? YES; Bacteria Urine 1+ /hpf; RBC Urine None seen /hpf (0-2); Squamous Epithelial Cell Urine Moderate /hpf (Few); WBC Urine 21-30 /hpf (0-3)
[2023-01-14 08:36] LABS: Hemoglobin A1C 6.4 % (<5.7)
[2023-01-14 08:56] LABS: Alanine Aminotransferase 24 U/L (14-59); Alkaline Phosphatase 65 U/L (46-116); Anion Gap 4 mmol/L (8-16); Aspartate Amino Transferase 17 U/L (15-37); Bilirubin,Total 0.3 mg/dL (0.00-1.00); Blood Urea Nitrogen 26 mg/dL (7-18); Calcium 8.6 mg/dL (8.5-10.1); Carbon Dioxide 31 mmol/L (21-32); Chloride 105 mmol/L (98-108); Cholesterol 155 mg/dL (0-200); Creatine Kinase 64 U/L (26-192); Estimated Glomerular Filt Rate 26; Glucose 92 mg/dL (70-99); HDL Direct 45 mg/dL (40-60); LDL Cholesterol Calculated 96 mg/dL (<130); Osmolality Calculated 294 mOsm/kg (285-295); Potassium 4.4 mmol/L (3.5-5.1); Sodium 140 mmol/L (136-145); Total Protein 6.9 g/dL (6.4-8.2); Triglycerides 68 mg/dL (0-150)
[2023-01-17 15:43] LABS: Vitamin D 25 Hydroxy 39 ng/mL (30-100)
== END 2023-01-14 08:12 | disposition home or self-care (01) ==
LOC: CHSLAB 08:14
PROVIDERS: PCP Internal Medicine; Visit Provider Internal Medicine
DX: I10 Essential (primary) hypertension (principal); E11.21 Type 2 diabetes mellitus with diabetic nephropathy; E78.2 Mixed hyperlipidemia; M81.0 Age-related osteoporosis without current pathological fracture; N39.0 Urinary tract infection, site not specified; R82.90 Unspecified abnormal findings in urine
CPT/HCPCS: 36415; 80053; 80061; 81001; 82306; 82550; 83036; 85025; 87077; 87086; 87088

== ENCOUNTER 2023-01-21 08:50 | Outpatient (CLI) | payer MEDICARE, SELFPAY ==
--- NOTE | ~2023-01-21 | XR_ITS ---
Lumbosacral Spine: AP and lateral views Clinical History: Pain Findings: The normal lordotic curve is maintained. There is mild levoscoliosis. There is 6 mm anterol isthesis of L5 over S1. There is moderate to advanced facet arthropathy throughout the lumbar spine. The sacroiliac joints are normally outlined. Impression: 6 mm anterolisthesis of L5 over S1. Extensive facet arthropathy. Reviewed, dictated and finalized at location M. ICAL MANAGER Impression: 6 mm anterolisthesis of L5 over S1. Extensive facet arthropathy.
[2023-01-21 09:33] LABS: Creatinine Urine 214.66 mg/dL (40-278); Sodium Urine Random 83 mmol/L (20-110); Total Protein Urine Random 37.5 mg/dL (0.0-11.9); Ur Ttl Prot Creatinine Ratio 0.17 mg/mg (0-0.20)
[2023-01-21 09:52] LABS: Albumin Level 3.6 g/dL (3.4-5.0); Anion Gap 8 mmol/L (8-16); Blood Urea Nitrogen 24 mg/dL (7-18); Calcium 8.2 mg/dL (8.5-10.1); Carbon Dioxide 27 mmol/L (21-32); Chloride 101 mmol/L (98-108); Estimated Glomerular Filt Rate 24; Glucose 284 mg/dL (70-99); Osmolality Calculated 296 mOsm/kg (285-295); Phosphorus 4.1 mg/dL (2.6-4.7); Potassium 4.8 mmol/L (3.5-5.1); Sodium 136 mmol/L (136-145)
[2023-01-24 21:51] LABS: ANCA Screen Negative (Negative)
[2023-01-25 16:57] LABS: Anti Glomerular Basement Memb <1.0 AI (<1.0)
== END 2023-01-21 08:51 | disposition home or self-care (01) ==
LOC: CHSLAB 08:52
PROVIDERS: PCP Internal Medicine; Visit Provider Internal Medicine Nephrology
DX: E11.22 Type 2 diabetes mellitus with diabetic chronic kidney disease (principal); N18.4 Chronic kidney disease, stage 4 (severe); M43.17 Spondylolisthesis, lumbosacral region
CPT/HCPCS: 36415; 72100; 80069; 82570; 83520; 84156; 84300; 86036

== ENCOUNTER 2023-02-04 08:45 | Outpatient (CLI) | payer MEDICARE, SELFPAY ==
--- NOTE | ~2023-02-04 | MR_ITS ---
EXAMINATION: MR lumbar spine wo con DATE: 02/04/2023 09:27 INDICATION: Lumbar radiculopathy. TECHNIQUE: Magnetic resonance imaging (MRI) of the lumbar spine was performed without intravenous con trast. Sequences included sagittal T2-weighted FSE, sagittal T2-weighted FS FSE, sagittal T1-weighted FSE, and axial T2-weighted FSE. COMPARISON: Lumbar spine radiographs 01/21/2023 FINDINGS: There is 11 degrees levoscoliosis of lumbar spine. There is 3 mm retrolisthesis of L1 on L2 and L2 on L3 and 4 mm anterolisthesis of L5 on S1. There is severely decreased disc height at L1-L2 and L2-L3, mildly decreased disc height at L4-L5, and moderately decreased disc height at L5-S1. The distal spinal cord signal intensity is normal. The conus medullaris is at T12-L1. There is a 2.3 cm c yst in right kidney. The following disc levels are specifically discussed: L1-L2: The disc is bulging and has an annular fissure. There is mild right and moderate left facet yasmany int osteoarthritis. There is mild bilateral neural foraminal stenosis. There is mild central canal st enosis. L2-L3: The disc is bulging and has an annular fissure. There is severe bilateral facet joint osteoart hritis. There is mild bilateral neural foraminal stenosis. There is mild central canal stenosis. L3-L4: The disc is bulging. There is severe bilateral facet joint osteoarthritis. There is mild bilat eral neural foraminal stenosis. There is mild central canal stenosis. L4-L5: The disc is bulging and has an annular fissure. There is severe right and mild left facet join t osteoarthritis. There is mild bilateral neural foraminal stenosis. There is mild central canal sten osis. L5-S1: The disc is bulging. There is severe bilateral facet joint osteoarthritis. There is mild bilat eral neural foraminal stenosis. There is mild central canal stenosis. IMPRESSION: 1. Severe lumbar spondylosis. 2. Lumbar levoscoliosis. Reviewed, dictated and finalized at location A. LE MOUNTER
== END 2023-02-04 08:46 | disposition home or self-care (01) ==
LOC: CHSIMG 08:46
PROVIDERS: PCP Internal Medicine; Visit Provider Internal Medicine
DX: M54.16 Radiculopathy, lumbar region (principal); M43.06 Spondylolysis, lumbar region; M41.86 Other forms of scoliosis, lumbar region
CPT/HCPCS: 72148

== ENCOUNTER 2023-02-11 11:23 | Outpatient (CLI) | payer MEDICARE, SELFPAY ==
[2023-02-11 11:49] LABS: Appearance Urine Clear (Clear); Bilirubin Urine Negative (Negative); Blood Urine Negative (Negative); Color Urine Light Yellow (Yellow); Glucose Urine UA Negative (Negative); Ketones Urine Negative (Negative); Leukocyte Esterase Ur 2+ (Negative); Nitrate Urine Negative (Negative); Protein Urine Negative (Negative); Urobilinogen Urine 0.2 mg/dL (0.2-1.0)
[2023-02-11 12:34] LABS: Add Urine Microscopic? YES; Bacteria Urine Trace /hpf; RBC Urine None seen /hpf (0-2)
[2023-02-11 13:01] LABS: Alanine Aminotransferase 33 U/L (14-59); Albumin Level 3.9 g/dL (3.4-5.0); Alkaline Phosphatase 72 U/L (46-116); Anion Gap 10 mmol/L (8-16); Aspartate Amino Transferase 21 U/L (15-37); Bilirubin,Total 0.2 mg/dL (0.00-1.00); Blood Urea Nitrogen 29 mg/dL (7-18); Calcium 9.1 mg/dL (8.5-10.1); Carbon Dioxide 28 mmol/L (21-32); Chloride 102 mmol/L (98-108); Estimated Glomerular Filt Rate 23; Glucose 162 mg/dL (70-99); Osmolality Calculated 299 mOsm/kg (285-295); Potassium 4.3 mmol/L (3.5-5.1); Sodium 140 mmol/L (136-145); Total Protein 6.9 g/dL (6.4-8.2)
[2023-02-14 11:31] LABS: Hepatitis C Virus Antibody Nonreactive
== END 2023-02-11 11:24 | disposition home or self-care (01) ==
LOC: CHSLAB 11:25
PROVIDERS: PCP Internal Medicine; Visit Provider Internal Medicine
DX: N18.4 Chronic kidney disease, stage 4 (severe) (principal)
CPT/HCPCS: 36415; 80053; 81001; 86803

== ENCOUNTER 2023-03-22 10:00 | Outpatient (CLI) | payer MEDICARE, SELFPAY ==
[2023-03-22 10:44] LABS: Albumin Level 3.5 g/dL (3.4-5.0); Anion Gap 10 mmol/L (8-16); Blood Urea Nitrogen 25 mg/dL (7-18); Calcium 8.3 mg/dL (8.5-10.1); Carbon Dioxide 27 mmol/L (21-32); Chloride 100 mmol/L (98-108); Estimated Glomerular Filt Rate 31; Glucose 115 mg/dL (70-99); Osmolality Calculated 289 mOsm/kg (285-295); Phosphorus 4.1 mg/dL (2.6-4.7); Potassium 4.6 mmol/L (3.5-5.1); Sodium 137 mmol/L (136-145)
== END 2023-03-22 10:01 | disposition home or self-care (01) ==
LOC: CHSLAB 10:02
PROVIDERS: PCP Internal Medicine; Visit Provider Internal Medicine Nephrology
DX: E11.22 Type 2 diabetes mellitus with diabetic chronic kidney disease (principal); N18.4 Chronic kidney disease, stage 4 (severe)
CPT/HCPCS: 36415; 80069

== ENCOUNTER 2023-05-03 09:02 | Outpatient (CLI) | payer MEDICARE, SELFPAY ==
[2023-05-03 10:58] LABS: Albumin Level 3.8 g/dL (3.4-5.0); Anion Gap 11 mmol/L (8-16); Blood Urea Nitrogen 29 mg/dL (7-18); Calcium 8.6 mg/dL (8.5-10.1); Carbon Dioxide 25 mmol/L (21-32); Chloride 101 mmol/L (98-108); Estimated Glomerular Filt Rate 31; Glucose 193 mg/dL (70-99); Osmolality Calculated 294 mOsm/kg (285-295); Phosphorus 4.2 mg/dL (2.6-4.7); Potassium 4.5 mmol/L (3.5-5.1); Sodium 137 mmol/L (136-145)
[2023-05-06 16:49] LABS: Parathyroid Intact 79 pg/mL (14-64)
[2023-05-06 22:12] LABS: Vitamin D 25 Hydroxy 46 ng/mL (30-100)
== END 2023-05-03 09:03 | disposition home or self-care (01) ==
LOC: CHSLAB 09:04
PROVIDERS: PCP Internal Medicine; Visit Provider Internal Medicine Nephrology
DX: E11.22 Type 2 diabetes mellitus with diabetic chronic kidney disease (principal); E55.9 Vitamin D deficiency, unspecified; N25.81 Secondary hyperparathyroidism of renal origin; N18.4 Chronic kidney disease, stage 4 (severe)
CPT/HCPCS: 36415; 80069; 82306; 83970

== ENCOUNTER 2023-07-14 07:59 | Outpatient (CLI) | payer MEDICARE, SELFPAY ==
[2023-07-14 08:14] LABS: Basophils Absolute Auto 0.09 K/mm3 (0.00-0.10); Basophils Percent Auto 1.3 % (0.0-1.0); Eosinophils Absolute Auto 0.23 K/mm3 (0.02-0.50); Eosinophils Percent Auto 3.3 % (1.0-6.0); Hematocrit 42.1 % (35.0-42.0); Hemoglobin 13.6 g/dL (11.7-13.8); Immature Granulocyte Absolute 0.02 K/mm3 (0.00-0.00); Immature Granulocyte Percent A 0.3 % (0.0-0.0); Lymphocytes Absolute Auto 1.64 K/mm3 (1.10-4.50); Lymphocytes Percent Auto 23.9 % (18.0-42.0); Mean Corpuscular HGB Conc 32.3 g/dL (32-36); Mean Corpuscular Hemoglobin 27.9 pg (27.0-31.0); Mean Corpuscular Volume 86.3 fL (78.0-102.0); Mean Platelet Volume 10.3 fl (9.2-11.8); Monocytes Percent Auto 7.3 % (2.0-11.0); Neutrophils Absolute Auto 4.39 K/mm3 (1.70-7.20); Neutrophils Percent Auto 63.9 % (50.0-70.0); Platelet Count Result 217 K/mm3 (150-420); Red Blood Count 4.88 M/mm3 (4.20-5.40); Red Cell Distribution Width 14.1 % (11.6-14.4); White Blood Count 6.9 K/mm3 (4.8-10.8)
[2023-07-14 08:23] LABS: Hemoglobin A1C 7.7 % (<5.7)
[2023-07-14 08:29] LABS: Appearance Urine Sl Cloudy (Clear); Bilirubin Urine Negative (Negative); Blood Urine Negative (Negative); Color Urine Light Yellow (Yellow); Glucose Urine UA Negative (Negative); Ketones Urine Negative (Negative); Leukocyte Esterase Ur 1+ (Negative); Nitrate Urine Negative (Negative); Protein Urine Negative (Negative); Urobilinogen Urine 0.2 mg/dL (0.2-1.0)
[2023-07-14 08:36] LABS: Alanine Aminotransferase 19 U/L (14-59); Albumin Level 3.6 g/dL (3.4-5.0); Alkaline Phosphatase 78 U/L (46-116); Anion Gap 6 mmol/L (4-12); Aspartate Amino Transferase 15 U/L (15-37); Bilirubin,Total 0.3 mg/dL (0.00-1.00); Blood Urea Nitrogen 28 mg/dL (7-18); Calcium 8.7 mg/dL (8.5-10.1); Carbon Dioxide 29 mmol/L (21-32); Chloride 104 mmol/L (98-108); Cholesterol 177 mg/dL (0-200); Estimated Glomerular Filt Rate 28; Glucose 146 mg/dL (70-99); HDL Direct 38 mg/dL (40-60); LDL Cholesterol Calculated 124 mg/dL (<130); Osmolality Calculated 296 mOsm/kg (285-295); Potassium 4.4 mmol/L (3.5-5.1); Sodium 139 mmol/L (136-145); Total Protein 6.6 g/dL (6.4-8.2); Triglycerides 75 mg/dL (0-150)
[2023-07-14 08:46] LABS: Add Urine Microscopic? YES; Bacteria Urine None seen /hpf; RBC Urine None seen /hpf (0-2); Renal Epithelial Cells Urine Few /hpf; Squamous Epithelial Cell Urine Many /hpf (Few)
== END 2023-07-14 08:00 | disposition home or self-care (01) ==
LOC: CHSLAB 08:02
PROVIDERS: PCP Internal Medicine; Visit Provider Internal Medicine
DX: I10 Essential (primary) hypertension (principal); E78.2 Mixed hyperlipidemia; N18.4 Chronic kidney disease, stage 4 (severe); E11.21 Type 2 diabetes mellitus with diabetic nephropathy; N39.0 Urinary tract infection, site not specified
CPT/HCPCS: 36415; 80053; 80061; 81001; 83036; 85025; 87086; 87088

== ENCOUNTER 2023-08-13 10:36 | Outpatient (CLI) | payer MEDICARE, SELFPAY ==
--- NOTE | ~2023-08-13 | DEXA_ITS ---
? Bone Density Report? Name:? SIVA RAMIREZ Patient ID:??? [id number] Age:? 87 Sex:? Female Ethnicity:? White Date of : 1935 Indication: postmenopausal; screening for osteoporosis; parental hip fracture; height loss; cancer; hysterectomy; Referring Provider: TOSHA TAYLOR Study: Bone densitometry was performed. Exam Date: August 13, 2023 Accession number: [id number] Bone Density: Region?BMD??? T-score? Z-score?? Classification AP Spine(L2, L3)? 1.166??? 1.0?3.9? Normal Femoral Neck (Left)? 0.668?? -1.6? 0.9? Osteopenia Total Hip (Left)?0.739?? -1.7? 0.7? Osteopenia Femoral Neck (Right)? 0.658?? -1.7? 0.8? Osteopenia Total Hip (Right)? 0.783?? -1.3? 1.0? Osteopenia Femoral Neck Mean? 0.663?? -1.7? 0.8? Osteopenia Total Hip Mean?0.761?? -1.5? 0.9? Osteopenia World Health Organization criteria for BMD impression classify patients as: Normal (T-score at or above -1.0), Osteopenia (T-score between -1.0 and -2.5), or Osteoporosis (T-score at or below -2.5). 10-year Fracture Risk: FRAX not reported because: ? Treated for osteoporosis Clinical Information Provided by Patient: Parent has had a hip fracture Is being treated for osteoporosis Has used the following medications: Fosamax (i.e. alendronate), Reclast (i.e. zoledronate), Vitamin D, biotin Has the following medical conditions: Cancer, Hysterectomy Patient maximum height was 62 Menopause Age: 53 Onset of menses at age 17 Number of children 3 Impression: The patient has low bone mass, based on the Left Total Hip T-score. The patient has risk factors, including: parental hip fracture. Discussion: It is important to ask patients whether they are taking their medications and to encourage continued and appropriate compliance with their osteoporosis therapies to reduce fracture risk. It is also important to review their risk factors and encourage appropriate calcium and vitamin D intakes, exercise, fall prevention and other lifestyle measures. Follow-Up: Consider a repeat BMD and Vertebral Fracture Assessment (VFA) exam in 2 years or sooner if medically necessary, to reassess this patient's status. Reported by: Dr. Jenaro Riggins on 08/16/2023 9:07:00 AM. MATT
== END 2023-08-13 10:37 | disposition home or self-care (01) ==
LOC: CHSIMG 10:37
PROVIDERS: PCP Internal Medicine; Visit Provider Internal Medicine
DX: Z78.0 Asymptomatic menopausal state (principal); M85.89 Other specified disorders of bone density and structure, multiple sites
CPT/HCPCS: 77080

== ENCOUNTER 2023-09-08 09:14 | Outpatient (CLI) | payer MEDICARE, SELFPAY ==
[2023-09-08 09:40] LABS: Creatinine Urine 123.72 mg/dL (40-278); Ur Ttl Prot Creatinine Ratio 0.14 mg/mg (0-0.20)
[2023-09-08 10:21] LABS: Albumin Level 3.6 g/dL (3.4-5.0); Anion Gap 7 mmol/L (4-12); Blood Urea Nitrogen 31 mg/dL (7-18); Calcium 8.4 mg/dL (8.5-10.1); Carbon Dioxide 27 mmol/L (21-32); Chloride 102 mmol/L (98-108); Estimated Glomerular Filt Rate 26; Glucose 224 mg/dL (70-99); Osmolality Calculated 295 mOsm/kg (285-295); Phosphorus 4.4 mg/dL (2.6-4.7); Potassium 4.9 mmol/L (3.5-5.1); Sodium 136 mmol/L (136-145)
== END 2023-09-08 09:15 | disposition home or self-care (01) ==
LOC: CHSLAB 09:16
PROVIDERS: PCP Internal Medicine; Visit Provider Internal Medicine Nephrology
DX: E11.22 Type 2 diabetes mellitus with diabetic chronic kidney disease (principal); N18.32 Chronic kidney disease, stage 3b
CPT/HCPCS: 36415; 80069; 82570; 84156

== ENCOUNTER 2023-09-13 10:10 | Outpatient (CLI) | payer MEDICARE, SELFPAY ==
[2023-09-13 10:21] VITALS: BP 130/61; PULSE 79; RESP 16; TEMP 36.5; O2SAT 97; BMI 25.2
[2023-09-13] MEDS: DENOSUMAB 60 MG/ML SYRINGE SUB-Q (10:37)
--- NOTE | 2023-09-13 10:42 | PC.NURSE ---
Patient here for Prolia injection. Education given. All concerns voiced answered. Handouts on medication given. Injection administered. SEE MAR. Tolerated well. SEE patient care notes.
== END 2023-09-13 10:11 | disposition home or self-care (01) ==
PROVIDERS: PCP Internal Medicine; Visit Provider Internal Medicine
DX: M81.0 Age-related osteoporosis without current pathological fracture (principal)
CPT/HCPCS: 96372; J0897

== ENCOUNTER 2023-10-22 07:59 | Outpatient (CLI) | payer MEDICARE, MEDICAID, SELFPAY ==
[2023-10-22 08:21] LABS: Creatinine Urine 210.06 mg/dL (40-278); Total Protein Urine Random 28.7 mg/dL (0.0-11.9); Ur Ttl Prot Creatinine Ratio 0.14 mg/mg (0-0.20)
[2023-10-22 08:34] LABS: Hemoglobin A1C 6.7 % (<5.7)
[2023-10-22 08:40] LABS: Anion Gap 8 mmol/L (4-12); Blood Urea Nitrogen 27 mg/dL (7-18); Calcium 8.4 mg/dL (8.5-10.1); Carbon Dioxide 27 mmol/L (21-32); Chloride 108 mmol/L (98-108); Estimated Glomerular Filt Rate 27; Glucose 105 mg/dL (70-99); Osmolality Calculated 301 mOsm/kg (285-295); Potassium 4.8 mmol/L (3.5-5.1); Sodium 143 mmol/L (136-145)
== END 2023-10-22 08:00 | disposition home or self-care (01) ==
LOC: CHSLAB 08:00
PROVIDERS: PCP Internal Medicine; Visit Provider Internal Medicine Nephrology
DX: E55.9 Vitamin D deficiency, unspecified (principal); N18.4 Chronic kidney disease, stage 4 (severe); N25.81 Secondary hyperparathyroidism of renal origin; E11.22 Type 2 diabetes mellitus with diabetic chronic kidney disease; E11.65 Type 2 diabetes mellitus with hyperglycemia
CPT/HCPCS: 36415; 80048; 82570; 83036; 84156

== ENCOUNTER 2024-01-08 12:14 | Outpatient (CLI) | payer MEDICARE, SELFPAY ==
[2024-01-08 12:35] LABS: Creatinine Urine 80.06 mg/dL (40-278); Total Protein Urine Random 9.1 mg/dL (0.0-11.9); Ur Ttl Prot Creatinine Ratio 0.11 mg/mg (0-0.20)
[2024-01-08 12:56] LABS: Albumin Level 3.6 g/dL (3.4-5.0); Anion Gap 23 mmol/L (4-12); Blood Urea Nitrogen 25 mg/dL (7-18); Calcium 8.7 mg/dL (8.5-10.1); Carbon Dioxide 14 mmol/L (21-32); Chloride 102 mmol/L (98-108); Estimated Glomerular Filt Rate 29; Glucose 209 mg/dL (70-99); Osmolality Calculated 298 mOsm/kg (285-295); Phosphorus 4.6 mg/dL (2.6-4.7); Potassium 4.4 mmol/L (3.5-5.1); Sodium 139 mmol/L (136-145)
[2024-01-11 12:18] LABS: Parathyroid Intact 84 pg/mL (16-77)
[2024-01-12 04:18] LABS: Vitamin D 25 Hydroxy 113 ng/mL (30-100)
== END 2024-01-08 12:15 | disposition home or self-care (01) ==
LOC: CHSLAB 12:18
PROVIDERS: PCP Internal Medicine; Visit Provider Internal Medicine Nephrology
DX: E11.22 Type 2 diabetes mellitus with diabetic chronic kidney disease (principal); E55.9 Vitamin D deficiency, unspecified; I12.9 Hypertensive chronic kidney disease with stage 1 through stage 4 chronic kidney disease, or unspecified chronic kidney disease; N25.81 Secondary hyperparathyroidism of renal origin; N18.4 Chronic kidney disease, stage 4 (severe)
CPT/HCPCS: 36415; 80069; 82306; 82570; 83970; 84156

== ENCOUNTER 2024-01-19 12:16 | Outpatient (CLI) | payer MEDICARE, SELFPAY ==
--- NOTE | ~2024-01-19 | MM_ITS ---
EXAMINATION: MM screening jose BI w sita HISTORY: Screening TECHNIQUE: Craniocaudal and mediolateral oblique 3-D tomosynthesis images were obtained and synthetic 2-D images were generated. CAD analysis was submitted and interpreted. COMPARISON: Comparison to multiple prior studies sequentially, with oldest reviewed study dated 11/08. BREAST PARENCHYMAL COMPOSITION: Not dense: There are scattered areas of fibroglandular density. FINDINGS: There is no evidence of suspicious mass, calcification, or architectural distortion to sugg est malignancy in either breast. There has been no suspicious interval change. IMPRESSION: 1. No mammographic evidence of malignancy. 2. Recommend routine screening mammography in one year. BI-RADS Category 1: Negative Reviewed, dictated and finalized at location B. GUIDE
== END 2024-01-19 12:17 | disposition home or self-care (01) ==
PROVIDERS: PCP Internal Medicine; Visit Provider Internal Medicine
DX: Z12.31 Encounter for screening mammogram for malignant neoplasm of breast (principal)
CPT/HCPCS: 77063; 77067

== ENCOUNTER 2024-02-11 08:00 | Outpatient (CLI) | payer MEDICARE, SELFPAY ==
[2024-02-11 08:19] LABS: Hemoglobin 13.8 g/dL (11.7-13.8); Immature Platelet Fraction Pct 12.5 % (1.0-7.0); Mean Corpuscular HGB Conc 31.4 g/dL (32-36); Mean Corpuscular Hemoglobin 27.6 pg (27.0-31.0); Mean Platelet Volume 10.6 fl (9.2-11.8); Platelet Count Result 132 K/mm3 (150-420); Red Cell Distribution Width 14.4 % (11.6-14.4); White Blood Count 8.1 K/mm3 (4.8-10.8)
[2024-02-11 08:20] LABS: Add Urine Microscopic? YES; Appearance Urine Clear (Clear); Bilirubin Urine Negative (Negative); Blood Urine Negative (Negative); Color Urine Light Yellow (Yellow); Glucose Urine UA Negative (Negative); Ketones Urine Trace (Negative); Leukocyte Esterase Ur 2+ (Negative); Nitrate Urine Negative (Negative); Protein Urine Negative (Negative); Urobilinogen Urine 0.2 mg/dL (0.2-1.0); pH Urine 5.5 (5.0-8.0)
[2024-02-11 08:36] LABS: Bacteria Urine 1+ /hpf; RBC Urine None seen /hpf (0-2); Squamous Epithelial Cell Urine Moderate /hpf (Few)
[2024-02-11 08:45] LABS: Hemoglobin A1C 6.6 % (<5.7)
[2024-02-11 09:00] LABS: Alanine Aminotransferase 32 U/L (14-59); Albumin Level 3.7 g/dL (3.4-5.0); Alkaline Phosphatase 76 U/L (46-116); Anion Gap 7 mmol/L (4-12); Aspartate Amino Transferase 16 U/L (15-37); Bilirubin,Total 0.3 mg/dL (0.00-1.00); Blood Urea Nitrogen 32 mg/dL (7-18); Calcium 8.4 mg/dL (8.5-10.1); Carbon Dioxide 29 mmol/L (21-32); Chloride 105 mmol/L (98-108); Cholesterol 190 mg/dL (0-200); Creatine Kinase 87 U/L (26-192); Estimated Glomerular Filt Rate 26; Free T4 Free Thyroxine 0.96 ng/dL (0.76-1.46); Glucose 115 mg/dL (70-99); HDL Direct 37 mg/dL (40-60); LDL Cholesterol Calculated 118 mg/dL (<130); Osmolality Calculated 299 mOsm/kg (285-295); Potassium 4.7 mmol/L (3.5-5.1); Sodium 141 mmol/L (136-145); Total Protein 6.5 g/dL (6.4-8.2); Triglycerides 177 mg/dL (0-150)
[2024-02-12 11:24] LABS: Parathyroid Intact 112 pg/mL (16-77)
== END 2024-02-11 08:01 | disposition home or self-care (01) ==
LOC: CHSLAB 08:03
PROVIDERS: PCP Internal Medicine; Visit Provider Internal Medicine
DX: E11.65 Type 2 diabetes mellitus with hyperglycemia (principal); I10 Essential (primary) hypertension; R53.82 Chronic fatigue, unspecified; N18.4 Chronic kidney disease, stage 4 (severe); M54.30 Sciatica, unspecified side
CPT/HCPCS: 36415; 80053; 80061; 81001; 82550; 83036; 83970; 84439; 84443; 85027; 85055

== ENCOUNTER 2024-03-27 09:33 | Outpatient (CLI) | payer MEDICARE, MEDICAID, SELFPAY ==
[2024-03-27 09:47] LABS: Basophils Absolute Auto 0.09 K/mm3 (0.00-0.10); Basophils Percent Auto 1.4 % (0.0-1.0); Eosinophils Absolute Auto 0.21 K/mm3 (0.02-0.50); Eosinophils Percent Auto 3.3 % (1.0-6.0); Hematocrit 41.5 % (35.0-42.0); Immature Granulocyte Absolute 0.02 K/mm3 (0.00-0.00); Immature Granulocyte Percent A 0.3 % (0.0-0.0); Lymphocytes Absolute Auto 1.41 K/mm3 (1.10-4.50); Lymphocytes Percent Auto 22.1 % (18.0-42.0); Mean Corpuscular HGB Conc 31.3 g/dL (32-36); Mean Corpuscular Hemoglobin 27.8 pg (27.0-31.0); Mean Corpuscular Volume 88.7 fL (78.0-102.0); Mean Platelet Volume 10.2 fl (9.2-11.8); Monocytes Absolute Auto 0.45 K/mm3 (0.10-0.90); Neutrophils Absolute Auto 4.21 K/mm3 (1.70-7.20); Neutrophils Percent Auto 65.9 % (50.0-70.0); Platelet Count Result 227 K/mm3 (150-420); Red Blood Count 4.68 M/mm3 (4.20-5.40); Red Cell Distribution Width 13.9 % (11.6-14.4); White Blood Count 6.4 K/mm3 (4.8-10.8)
[2024-03-27 10:36] LABS: Anion Gap 10 mmol/L (4-12); Blood Urea Nitrogen 29 mg/dL (7-18); Calcium 8.9 mg/dL (8.5-10.1); Carbon Dioxide 26 mmol/L (21-32); Chloride 104 mmol/L (98-108); Estimated Glomerular Filt Rate 22; Free T3 2.45 pg/mL (2.18-3.98); Free T4 Free Thyroxine 0.99 ng/dL (0.76-1.46); Glucose 277 mg/dL (70-99); Osmolality Calculated 305 mOsm/kg (285-295); Potassium 4.9 mmol/L (3.5-5.1); Sodium 140 mmol/L (136-145)
--- OUTSIDE RECORDS SUMMARY | 2024-03-27 12:21 | XMS_ITS | Clinical Summary ---
Author Organization [facility] Address [address] [place] [id number] Care Team Providers Care Technical Delivery Manager Name Role Phone Unavailable Primary Care Provider Unavailabl e Social History Tobacco Use Types Packs/Day Years Used Date Smoking Tobacco: Former Comments Unknown Sex and Gender Information Value Date Recorded Sex Assigned at Not on file Legal Sex Female 11:46 PM CDT Gender Identity Not on file Sexual Orientation Not on file Last Filed Vital Signs Vital Sign Reading Time Taken Comments Blood Pressure 141/68 03/01/2014 3:44 PM NEONATAL DOCTOR Pulse 90 03/01/2014 3:43 PM NEONATAL DOCTOR Temperature - - Respiratory Rate 24 03/01/2014 3:43 PM NEONATAL DOCTOR Oxygen Saturation - - Inhaled Oxygen Concentration - - Weight 57.7 kg (127 lb 3.2 oz) 03/01/2014 3:43 P M NEONATAL DOCTOR Height 157.5 cm (5' 2 ) 03/01/2014 3:43 PM NEONATAL DOCTOR Body Mass Index 23.27 03/01/2014 3:43 PM NEONATAL DOCTOR Plan of Treatment Health Maintenance Due Date Last Done Comments DTaP, Tdap and Td Vaccines ( 1 - Tdap) 12/12/1955 Zoster Vaccines (1 of 2) 1986 Pneumococcal Vaccine: 65+ Ye ars (1 of 1 - PCV) 2001 RSV Immunization or 60+ Years (1 - 1-dose 75+ series) 12/12/2011 COVID-19 Vaccine ( - 2023-2 5 season) 2023 Influenza Adult (#1) 2023 Meningococcal B Vaccine Aged Out No l onger eligible based on patient's age to complete this topic Meningococcal Vaccine Aged Out No ignacio shefali eligible based on patient's age to complete this topic RSV Immunizations Under 20 Months Aged Out No longer eligible based on patient's age to complete this topic
--- OUTSIDE RECORDS SUMMARY | 2024-03-27 12:21 | XMS_ITS | Referral Summary ---
Author Organization [facility] Address [facility] [place] [address] Care Team Providers Care Social Work Supervisor Name Role Phone Charlee Leone MD Primary Care Provider Allergies Active Allergy Reactions Criticality Noted Date Comments Codeine Vomiting Low 04/25/2018 Sulfa (Sulfonamide Antibiotics) Unknown 04/08 Medications amLODIPine (NORVASC) 5 mg tabletIndicatio ns:hypertension Take 1 tablet (5 mg total) by mouth 9 Active NOVOLOG MIX 70-30FLEXPEN U-100 100 unit/mL (70-30) insulin penIndications: type 2 diabetes mellitus,40 units in am and 30 in evening 9 Active ergocalciferol, vitamin D2, (VITAMIN D2 ORAL)Indication s:vitamin Take 1 tablet by mouth every morning Active UNABLE TO FIND Med Name: Fosamax injection every 6 months for bone density Active acetaminophen (TYLENOL) 325 mg tablet Take 2 tablets (650 mg total) by mouth every 6 (six) hours as needed for pain Active raNITIdine (ZANTAC) 75 mg tablet Take 75 mg by mouth as needed for indigestion or heartburn Active BD ULTRA-FINE SHORT PEN NEEDLE 31 gauge x /16 needle 1 9 Active TRUE METRIX GLUCOSE TEST STRIP strip USE 1 STRIP TO CHECK GLUCOSE THREE TIMES DAILY 5 9 Active famotidine (PEPCID) 20 mg tablet Take 20 mg by mouth 2 (two) times a day Active pantoprazole DR (PROTONIX) 40 mg EC tablet Take 1 tablet (40 mg total) by mouth daily 2 Active cholecalciferol 25 mcg (1,000 unit) tablet Take 1 tablet (1,000 Units total) by mouth daily Active tamoxifen (NOLVADEX) 20 mg tabletIndicatio ns:Malignant neoplasm of lower-inner quadrant of right breast of female, estrogen receptor positive (HCC) Take 1 tablet by mouth once daily 90 tablet 3 Active Active Problems Problem Noted Date Diagnosed Date History of breast cancer 12/08/2018 Malignant neoplasm of lower- inner quadrant of right breast of female, estrogen receptor positive 04/27/2018 Cancer Staging:Clinical stage from 06/24/2018:Stage IA(cT1b, cN0(sn), cM0, G2, ER+, AR+, HER2-) - Signed by Carlos Rodriguez DO on 06/24/2018 Overview (04/27/2018): Added automatically from request for surgery [id number] Immunizations Immunization Administration Dates Next Due Influenza, Unspecified 11/12/2018,11/08/2017 Pneumococcal Conjugate, Unspecified 02/08/2015 ZOSTER LIVE 02/08/2017 Social History Tobacco Use Types Packs/Day Years Used Date Smoking Tobacco: Former Cigarettes 1 20 1 965 - 1985 Smokeless Tobacco: Never Tobacco Cessation:Counseling Given: Not Answered Alcohol Use Standard Drinks/Week Comments Never 0 (1 standard drink = 0.6 oz pur e alcohol) AUDIT-C Answer Date Recorded Frequency of Alcohol Consumption Never 04/25/2018 Average Number of Drinks Not on file 019 Frequency of Binge Drinking Not on file 04/08 Comments No Sex and Gender Information Value Date Recorded Sex Assigned at Not on file Legal Sex Female 9:03 PM TWISTER DOFFER Gender Identity Not on file Sexual Orientation Not on file 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 on file Not on file Not on file Last Filed Vital Signs Vital Sign Reading Time Taken Comments Blood Pressure 144/78 09/18/2022 11:16 AM CDT Pulse 77 09/18/2022 11:16 AM CDT Temperature 36.7 C (98.1 F) 09/18/2022 11:16 AM CDT Respiratory Rate 18 09/18/2022 11:16 AM CDT Oxygen Saturation 95% 09/18/2022 11:16 AM CDT Inhaled Oxygen Concentration - - Weight 57.6 kg (127 lb) 11/02/2022 9:22 AM CDT Height 157.5 cm (5' 2 ) 11/02/2022 9:22 AM CDT Body Mass Index 23.23 11/02/2022 9:22 AM CDT Plan of Treatment Not on file Insurance MEDICARE [facility] MEDICARE [facility] [place] Care Teams Social Work Supervisor Relationship Specialty Start Date End Date Charlee Leone MD [address] [place] [address] PCP - General Internal Medicine 04/08/18
--- OUTSIDE RECORDS SUMMARY | 2024-03-27 12:21 | XMS_ITS | Clinical Summary ---
Author Organization [facility] Address [facility] [place] [address] Care Team Providers Care Airport Tower Controller Name Role Phone Charlee Leone MD Primary Care Provider [phone] Allergies Active Allergy Reactions Criticality Noted Date [...] from 06/24/2018:Stage IA(cT1b, cN0(sn), cM0, G2, ER+, RI+, HER2-) - Signed by Carlos Rodriguez DO on 06/24/2018 Overview (04/27/2018): Added automatically from request for surgery [id number] Immunizations Immunization Administration Dates Next Due Influenza, Unspecified 11/12/2018,11/08/2017 Pneumococcal Conjugate, Unspecified 02/08/2015 ZOSTER LIVE 02/08/2017 Surgical History Surgery Date Site/Laterality Comments HYSTERECTOMY 02/08/2014 - 02/07/2015 EYE SURGERY 02/08/2014 - 02/07/2015 Left CARPAL TUNNEL RELEASE 02/09/2016 - 02/07/2017 Right CATARACT EXTRACTION BREAST SURGERY Medical History Medical History Date Comments Diabetes (HCC) Osteoporosis Cataract cortical, senile, bilateral Hypertension Renal cyst Family History Medical History Relation Name Comments Hodgkin's lymphoma Brother Bladder Cancer Father Breast cancer Mother Cancer Mother tonsil cancer Breast cancer Mother's Sister 68-70 Relation Name Status Comments Brother Father Mother Mother's Sister Social History Tobacco Use Types Packs/Day Years Used Date Smoking Tobacco: Former Cigarettes 20 1 965 - 1985 Smokeless Tobacco: [...] on file Legal Sex Female 9:03 PM INFUSION NURSE Gender Identity Not on file Sexual Orientation Not on file 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 on file Not on file Not on file Obstetrics History Last Filed Vital Signs Vital Sign Reading [...] 11/02/2022 9:22 AM CDT Plan of Treatment Health Maintenance Due Date Last Done Comments Depression Screening 1935 Fall Risk Assessment 1935 DTaP/Tdap/Td Vaccine (1 - Tdap) 12/12/1947 Hepatitis B Screening 1953 Well Visit 65+ 2001 Pneumococcal vaccine 65+ (2 of 2 - PPSV23 or PCV20) 04/05/2015 02/08/2015 Zoster Vaccine (1 of 2) 04/05/2017 02/08/2017 Influenza Vaccine (#1) 2023 11/12/2018, 2017 Insurance MEDICARE [facility] MEDICARE [facility] Care Teams Airport Tower Controller Relationship Specialty Start Date End Date Charlee Leone MD [address] [place] [address] PCP - General Internal Medicine 04/08/18
== END 2024-03-27 09:34 | disposition home or self-care (01) ==
LOC: CHSLAB 09:37
PROVIDERS: PCP Internal Medicine; Visit Provider Internal Medicine
DX: E03.4 Atrophy of thyroid (acquired) (principal); N18.4 Chronic kidney disease, stage 4 (severe)
CPT/HCPCS: 36415; 80048; 84439; 84443; 84481; 85025

== ENCOUNTER 2024-04-14 16:46 | Outpatient (CLI) | payer MEDICARE, MEDICAID, SELFPAY ==
--- OUTSIDE RECORDS SUMMARY | 2024-04-14 16:49 | XMS_ITS | Clinical Summary ---
Author Organization [facility] Address [address] [place] [address] Care Team Providers Care Binder Caser Name Role Phone Unavailable Primary Care Provider [...] Comments Blood Pressure 141/68 03/01/2014 3:44 PM RESIDENTIAL PROPERTY TAX APPRAISER Pulse 90 03/01/2014 3:43 PM RESIDENTIAL PROPERTY TAX APPRAISER Temperature - - Respiratory Rate 24 03/01/2014 3:43 PM RESIDENTIAL PROPERTY TAX APPRAISER Oxygen Saturation - - Inhaled Oxygen Concentration - - Weight 57.7 kg (127 lb 3.2 oz) 03/01/2014 3:43 P M RESIDENTIAL PROPERTY TAX APPRAISER Height 157.5 cm (5' 2 ) 03/01/2014 3:43 PM RESIDENTIAL PROPERTY TAX APPRAISER Body Mass Index 23.27 03/01/2014 3:43 PM RESIDENTIAL PROPERTY TAX APPRAISER Plan of Treatment Health Maintenance Due Date [...]
--- OUTSIDE RECORDS SUMMARY | 2024-04-14 16:49 | XMS_ITS | Clinical Summary ---
Author Organization [facility] Address [facility] [place] [address] Care Team Providers Care Computer Hardware Designer Name Role Phone Charlee Leone MD Primary Care Provider [phone] Allergies Active Allergy Reactions Criticality Noted Date [...] from 06/24/2018:Stage IA(cT1b, cN0(sn), cM0, G2, ER+, WI+, HER2-) - Signed by Carlos Rodriguez DO on 06/24/2018 Overview (04/27/2018): Added automatically from request for surgery [id number] Immunizations Immunization Administration Dates Next Due Influenza, [...] on file Legal Sex Female 9:03 PM CLEANERS Gender Identity Not on file Sexual Orientation [...] Pneumococcal vaccine 65+ (2 of 2 - PPSV23) 04/05/2015 02/08/2015 Zoster Vaccine (1 of 2) 04/05/2017 02/08/2017 Influenza Vaccine (#1) 2023 11/12/2018, 2017 Insurance MEDICARE [facility] MEDICARE [facility] Care Teams Computer Hardware Designer Relationship Specialty Start Date End Date Charlee Leone MD [address] [place] [address] PCP - General Internal Medicine 04/08/18
--- OUTSIDE RECORDS SUMMARY | 2024-04-14 16:49 | XMS_ITS | Referral Summary ---
Author Organization [facility] Address [facility] [place] [address] Care Team Providers Care Hose Tubing Backer Name Role Phone Charlee Leone MD Primary Care Provider [phone] Allergies Active Allergy Reactions Criticality Noted Date [...] from 06/24/2018:Stage IA(cT1b, cN0(sn), cM0, G2, ER+, SD+, HER2-) - Signed by Carlos Rodriguez DO on 06/24/2018 Overview (04/27/2018): Added automatically from request for surgery [id number] Immunizations Immunization Administration Dates Next Due Influenza, [...] on file Legal Sex Female 9:03 PM CLERICAL CLERK Gender Identity Not on file Sexual Orientation [...] of Treatment Not on file Insurance MEDICARE [facility] MEDICARE [facility] [employer] Care Teams Hose Tubing Backer Relationship Specialty Start Date End Date Charlee Leone MD [address] [place] [address] PCP - General Internal Medicine 04/08/18
[2024-04-14 17:08] LABS: Total Protein Urine Random 7.6 mg/dL (0.0-11.9); Ur Ttl Prot Creatinine Ratio 0.13 mg/mg (0-0.20)
[2024-04-14 17:23] LABS: Albumin Level 3.9 g/dL (3.4-5.0); Anion Gap 10 mmol/L (4-12); Blood Urea Nitrogen 34 mg/dL (7-18); Calcium 8.7 mg/dL (8.5-10.1); Carbon Dioxide 26 mmol/L (21-32); Chloride 103 mmol/L (98-108); Estimated Glomerular Filt Rate 25; Glucose 227 mg/dL (70-99); Osmolality Calculated 302 mOsm/kg (285-295); Phosphorus 3.7 mg/dL (2.6-4.7); Potassium 4.1 mmol/L (3.5-5.1); Sodium 139 mmol/L (136-145)
== END 2024-04-14 16:47 | disposition home or self-care (01) ==
PROVIDERS: PCP Internal Medicine; Visit Provider Internal Medicine Nephrology
DX: E11.22 Type 2 diabetes mellitus with diabetic chronic kidney disease (principal); I12.9 Hypertensive chronic kidney disease with stage 1 through stage 4 chronic kidney disease, or unspecified chronic kidney disease; N18.4 Chronic kidney disease, stage 4 (severe)
CPT/HCPCS: 36415; 80069; 82570; 84156

== ENCOUNTER 2024-08-14 10:37 | Outpatient (CLI) | payer MEDICARE, SELFPAY ==
--- OUTSIDE RECORDS SUMMARY | 2024-08-14 10:51 | XMS_ITS | Referral Summary ---
Author Organization [facility] Address Replaced by [facility] [place] [address] Care Team Providers Care Tunnel Worker Name Role Phone Charlee Leone MD Primary Care Provider [phone] Allergies Active Allergy Reactions Criticality Noted Date [...] from 06/24/2018:Stage IA(cT1b, cN0(sn), cM0, G2, ER+, ID+, HER2-) - Signed by Carlos Rodriguez DO on 06/24/2018 Overview (04/27/2018): Added automatically from request for surgery [id number] Immunizations Immunization Administration Dates Next Due Influenza, [...] on file Legal Sex Female 9:03 PM SUPERVISOR BLASTING Gender Identity Not on file Sexual Orientation [...] 9:22 AM CDT Height 157.5 cm (5' 2) 11/02/2022 9:22 AM CDT Body Mass Index 23.23 11/02/2022 9:22 AM CDT Plan of Treatment Not on file Insurance MEDICARE [facility] MEDICARE [facility] IDPA Care Teams Tunnel Worker Relationship Specialty Start Date End Date Charlee Leone MD [address] [place] [address] PCP - General Internal Medicine 04/08/18
--- OUTSIDE RECORDS SUMMARY | 2024-08-14 10:51 | XMS_ITS | Clinical Summary ---
Author Organization [facility] Address [facility] [place] [address] Care Team Providers Care Engine Boss Name Role Phone Charlee Leone MD Primary [...] from 06/24/2018:Stage IA(cT1b, cN0(sn), cM0, G2, ER+, AL+, HER2-) - Signed by Carlos Rodriguez DO on 06/24/2018 Overview (04/27/2018): Added automatically from request for surgery [id number] Immunizations Immunization Administration Dates Next Due Influenza, [...] on file Legal Sex Female 9:03 PM ROTARY CUTTER Gender Identity Not on file Sexual Orientation [...] Depression Screening 1936 Fall Risk Assessment 1936 Osteoporosis Screening-Bone Density Scan 1936 DTaP/Tdap/Td Vaccine (1 - Tdap) 12/12/1947 Hepatitis B Screening 1954 Well Visit 65+ 2001 Pneumococcal vaccine 65+ (2 of 2 - PPSV23) 04/05/2015 02/08/2015 Zoster Vaccine (1 of 2) 04/05/2017 02/08/2017 Influenza Vaccine (#1) 2024 11/12/2018, 2017 Insurance MEDICARE [place] MEDICARE [facility] Care Teams Engine Boss Relationship Specialty Start Date End Date Charlee Leone MD [address] [place] [address] PCP - General Internal Medicine 04/08/18
--- OUTSIDE RECORDS SUMMARY | 2024-08-14 10:51 | XMS_ITS | Clinical Summary ---
Author Organization [facility] Address [address] [place] [address] Care Team Providers Care Talent Acquisition Partner Name Role Phone Unavailable Primary Care Provider [...] Comments Blood Pressure 141/68 03/01/2014 3:44 PM COMPENSATION ANALYST Pulse 90 03/01/2014 3:43 PM COMPENSATION ANALYST Temperature - - Respiratory Rate 24 03/01/2014 3:43 PM COMPENSATION ANALYST Oxygen Saturation - - Inhaled Oxygen Concentration - - Weight 57.7 kg (127 lb 3.2 oz) 03/01/2014 3:43 P M COMPENSATION ANALYST Height 157.5 cm (5' 2) 03/01/2014 3:43 PM COMPENSATION ANALYST Body Mass Index 23.27 03/01/2014 3:43 PM COMPENSATION ANALYST Plan of Treatment Health Maintenance Due Date Last Done Comments DTaP, Tdap and Td Vaccines ( 1 - Tdap) 12[birth year]12/1954 Pneumococcal Vaccine: 50+ Ye ars (1 of 1 - PCV) 1986 Zoster Vaccines (1 of 2) 1986 RSV Immunization or 60+ Years (1 - 1-dose 75+ series) 12/12/2011 COVID-19 Vaccine ( - 2023-2 5 season) 2023 Meningococcal B Vaccine Aged Out No l onger eligible based on patient's age to complete this topic Meningococcal Vaccine Aged Out No ignacio shefali eligible based on patient's age to complete this topic RSV Immunizations Under 20 Months Aged Out No longer eligible based on patient's age to complete this topic
[2024-08-14 11:02] LABS: Total Protein Urine Random 9 mg/dL; Ur Ttl Prot Creatinine Ratio 0.06 mg/mg (0-0.20)
[2024-08-14 11:19] LABS: Albumin Level 4.2 g/dL (3.5-5.1); Carbon Dioxide 24 mmol/L (22-30); Chloride 107 mmol/L (98-107)
[2024-08-14 11:20] LABS: Anion Gap 6 mmol/L (4-12); Blood Urea Nitrogen 23 mg/dL (7-17); Calcium 9.0 mg/dL (8.4-10.2); Estimated Glomerular Filt Rate 27; Glucose 99 mg/dL (65-110); Osmolality Calculated 287 mOsm/kg (285-295); Potassium 4.7 mmol/L (3.4-5.0); Sodium 137 mmol/L (137-145)
[2024-08-15 14:47] LABS: Parathyroid Intact 76 pg/mL (16-77)
== END 2024-08-14 10:38 | disposition home or self-care (01) ==
LOC: CHSLAB 10:38
PROVIDERS: PCP Internal Medicine; Visit Provider Internal Medicine Nephrology
DX: N18.4 Chronic kidney disease, stage 4 (severe) (principal); I12.9 Hypertensive chronic kidney disease with stage 1 through stage 4 chronic kidney disease, or unspecified chronic kidney disease; E11.22 Type 2 diabetes mellitus with diabetic chronic kidney disease; N25.81 Secondary hyperparathyroidism of renal origin; E55.9 Vitamin D deficiency, unspecified
CPT/HCPCS: 36415; 80069; 82306; 82570; 83970; 84156

== ENCOUNTER 2024-10-25 08:04 | Outpatient (CLI) | payer MEDICARE, SELFPAY ==
[2024-10-25 08:22] LABS: Hematocrit 42.4 % (35.0-42.0); Hemoglobin 13.7 g/dL (11.7-13.8); Immature Granulocyte Percent A 0.3 % (0.0-0.0); Lymphocytes Absolute Auto 1.70 K/mm3 (1.10-4.50); Mean Corpuscular HGB Conc 32.3 g/dL (32-36); Mean Corpuscular Hemoglobin 28.4 pg (27.0-31.0); Mean Corpuscular Volume 88.0 fL (78.0-102.0); Nucleated Red Blood Cells Absolute Auto 0.00 K/mm3 (0.00-0.00); Nucleated Red Blood Cells Perc 0.0 % (0-0.0); Platelet Count Result 257 K/mm3 (150-420); Red Blood Count 4.82 M/mm3 (4.20-5.40); White Blood Count 6.1 K/mm3 (4.8-10.8)
[2024-10-25 08:23] LABS: Add Urine Microscopic? YES; Appearance Urine Clear (Clear); Glucose Urine UA Negative (Negative); Leukocyte Esterase Ur 1+ LEU/UL (Negative); Nitrate Urine Negative (Negative); Specific Grav Ur 1.020 (1.010-1.020)
--- OUTSIDE RECORDS SUMMARY | 2024-10-25 08:25 | XMS_ITS | Clinical Summary ---
Author Organization [facility] Address [facility] [place] [address] Care Team Providers Care Senior Asic Engineer Name Role Phone Charlee Leone MD Primary [...] from 06/24/2018:Stage IA(cT1b, cN0(sn), cM0, G2, ER+, VT+, HER2-) - Signed by Carlos Rodriguez DO on 06/24/2018 Overview (04/27/2018): Added automatically from request for surgery [id number] Immunizations Immunization Administration Dates Next Due Influenza, [...] on file Legal Sex Female 9:03 PM HYPOID GEAR TESTER Gender Identity Not on file Sexual Orientation [...] Pneumococcal vaccine 65+ (2 of 2 - PPSV23, PCV20, or PCV21) 04/05/2015 02/08/2015 Zoster Vaccine (1 of 2) 04/05/2017 02/08/2017 Influenza Vaccine (#1) 2024 11/12/2018, 2017 Insurance MEDICARE [place] MEDICARE [facility] Care Teams Senior Asic Engineer Relationship Specialty Start Date End Date Charlee Leone MD [address] [place] [id number] PCP - General Internal Medicine 04/08/18
--- OUTSIDE RECORDS SUMMARY | 2024-10-25 08:25 | XMS_ITS | Clinical Summary ---
Author Organization [facility] Address [address] [place] [address] Care Team Providers Care Tow Operator Name Role Phone Unavailable Primary Care Provider [...] Comments Blood Pressure 141/68 03/01/2014 3:44 PM LANDING MAN Pulse 90 03/01/2014 3:43 PM LANDING MAN Temperature - - Respiratory Rate 24 03/01/2014 3:43 PM LANDING MAN Oxygen Saturation - - Inhaled Oxygen Concentration - - Weight 57.7 kg (127 lb 3.2 oz) 03/01/2014 3:43 P M LANDING MAN Height 157.5 cm (5' 2) 03/01/2014 3:43 PM LANDING MAN Body Mass Index 23.27 03/01/2014 3:43 PM LANDING MAN Plan of Treatment Health Maintenance Due Date Last Done Comments DTaP, Tdap and Td Vaccines ( 1 - Tdap) 12[birth year]12/1954 Pneumococcal Vaccine: 50+ Ye ars (1 of 1 - PCV) 1986 Zoster Vaccines (1 of 2) 1986 RSV Immunization or 60+ Years (1 - 1-dose 75+ series) 12/12/2011 COVID-19 Vaccine ( - 2023-2 5 season) 2024 Meningococcal B Vaccine Aged Out No l onger eligible based on patient's age to complete this topic Meningococcal Vaccine Aged Out No ignacio shefali eligible based on patient's age to complete this topic RSV Immunizations Under 20 Months Aged Out No longer eligible based on patient's age to complete this topic
[2024-10-25 08:44] LABS: Hemoglobin A1C 5.3 % (<5.7)
[2024-10-25 08:56] LABS: Alanine Aminotransferase 14 U/L (6-35); Albumin Level 4.2 g/dL (3.5-5.1); Alkaline Phosphatase 53 U/L (38-126); Anion Gap 11 mmol/L (4-12); Aspartate Amino Transferase 24 U/L (14-36); Bilirubin,Total 0.6 mg/dL (0.2-1.3); Blood Urea Nitrogen 20 mg/dL (7-17); Calcium 9.7 mg/dL (8.4-10.2); Carbon Dioxide 24 mmol/L (22-30); Chloride 101 mmol/L (98-107); Cholesterol 199 mg/dL (0-200); Creatine Kinase 78 U/L (30-135); Estimated Glomerular Filt Rate 28; Glucose 113 mg/dL (65-110); HDL Direct 36 mg/dL; Osmolality Calculated 285 mOsm/kg (285-295); Potassium 4.7 mmol/L (3.4-5.0); Sodium 136 mmol/L (137-145); Total Protein 6.9 g/dL (6.3-8.2); Triglycerides 156 mg/dL (<150)
[2024-10-25 09:12] LABS: Free T4 Free Thyroxine 1.64 ng/dL (0.78-2.19)
[2024-10-25 09:26] LABS: Thyroid Stimulating Hormone 2.550 uIU/mL (0.465-4.680)
[2024-10-26 09:14] LABS: Parathyroid Intact 42.9
== END 2024-10-25 08:05 | disposition home or self-care (01) ==
LOC: CHSLAB 08:06
PROVIDERS: PCP Internal Medicine; Visit Provider Internal Medicine
DX: E11.21 Type 2 diabetes mellitus with diabetic nephropathy (principal); E78.2 Mixed hyperlipidemia; E03.4 Atrophy of thyroid (acquired); I10 Essential (primary) hypertension
CPT/HCPCS: 36415; 80053; 80061; 81001; 82550; 83036; 83970; 84439; 84443; 85025

== ENCOUNTER 2024-12-04 11:52 | Outpatient (CLI) | payer MEDICARE, MEDICAID, SELFPAY ==
--- NOTE | ~2024-12-04 | DEXA_ITS ---
Bone Density Report Name: SIVA RAMIREZ Age: 88 Sex: Female Ethnicity: White Date of : 1935 Indication: postmenopausal; screening for osteoporosis; height loss; Referring Provider: Charlee Leone Study: Bone densitometry was performed. Exam Date: December 04, 2024 Accession number: [id number] Bone Density: Region BMD T-score Z-score Classification AP Spine(L2, L3) 1.249 1.7 4.6 Normal Femoral Neck (Left) 0.703 -1.3 1.2 Osteopenia Total Hip (Left) 0.867 -0.6 1.7 Normal Femoral Neck (Right) 0.688 -1.5 1.1 Osteopenia Total Hip (Right) 0.857 -0.7 1.6 Normal Femoral Neck Mean 0.696 -1.4 1.1 Osteopenia Total Hip Mean 0.862 -0.7 1.7 Normal World Health Organization criteria for BMD impression classify patients as: Normal (T-score at or above -1.0), Osteopenia (T-score between -1.0 and -2.5), or Osteoporosis (T-score at or below -2.5). 10-year Fracture Risk(1): Major Osteoporotic Fracture 11% Hip Fracture 3.1% Reported Risk Factors: [place] (), Neck BMD=0.688, BMI=22.4 (1) FRAX(R) Version 3.08. Fracture probability calculated for an untreated patient. Fracture probability may be lower if the patient has received treatment. Clinical Information Provided by Patient: Patient maximum height was 60 Menopause Age: 53 No regular weight bearing exercise Does not regularly consume dairy products Drinks caffeinated beverages Onset of menses at age 18 Number of children 3 Impression: The patient has low bone mass, based on the Right Femoral Neck T-score. Discussion: BONE DENSITY IS LOW AT ONE OR MORE SKELETAL SITES. This patient's lowest T-score is low at one or more skeletal sites. It meets the World Health Organization's (WHO) criteria for ?low bone mass? (T-score between -1.0 and -2.5). The patient's 10-year risk of fracture as calculated by FRAX is less than the threshold where pharmacological therapy is recommended by the National Osteoporosis Foundation (NOF). However, all treatment decisions require clinical judgment and consideration of individual patient factors, including patient preferences, comorbidities, previous drug use, risk factors not captured in the FRAX model (e.g., frailty, falls, vitamin D deficiency, increased bone turnover, interval significant decline in bone density) and possible under or overestimation of fracture risk by FRAX. The patient should follow a healthful lifestyle (good nutrition with adequate calcium and vitamin D, and appropriate weight-bearing exercise). Follow-Up: Consider repeating this study in 2 to 3 years to reassess this patient's status, or sooner if there is some new clinical indication. Reported by: LEONOR on 12/04/2024 12:22:00 PM. Reviewed, dictated and finalized at location A.
--- OUTSIDE RECORDS SUMMARY | 2024-12-04 13:25 | XMS_ITS | Clinical Summary ---
Author Organization [facility] Address [address] [place] [address] Care Team Providers Care Senior Windows Engineer Name Role Phone Unavailable Primary Care Provider [...] Comments Blood Pressure 141/68 03/01/2014 3:44 PM CIRCUIT RIDER Pulse 90 03/01/2014 3:43 PM CIRCUIT RIDER Temperature - - Respiratory Rate 24 03/01/2014 3:43 PM CIRCUIT RIDER Oxygen Saturation - - Inhaled Oxygen Concentration - - Weight 57.7 kg (127 lb 3.2 oz) 03/01/2014 3:43 P M CIRCUIT RIDER Height 157.5 cm (5' 2) 03/01/2014 3:43 PM CIRCUIT RIDER Body Mass Index 23.27 03/01/2014 3:43 PM CIRCUIT RIDER Plan of Treatment Health Maintenance Due Date Last Done Comments DTaP, Tdap and Td Vaccines ( 1 - Tdap) [birth year]12/1954 Pneumococcal Vaccine: 50+ Ye ars (1 of 1 - PCV) 1986 Zoster Vaccines (1 of 2) 1986 RSV Immunization or 60+ Years (1 - 1-dose 75+ series) 12/12/2011 COVID-19 Vaccine ( - 2024-2 6 season) 2024 Influenza Adult (#1) 2024 Hepatitis A Vaccines Aged Out No long er eligible based on patient's age to complete this topic Meningococcal B Vaccine Aged Out No l onger eligible based on patient's age to complete this topic Meningococcal Vaccine Aged Out No ignacio shefali eligible based on patient's age to complete this topic RSV Immunizations Under 20 Months Aged Out No longer eligible based on patient's age to complete this topic
--- OUTSIDE RECORDS SUMMARY | 2024-12-04 13:26 | XMS_ITS | Clinical Summary ---
Author Organization [facility] Address [facility] [place] [address] Care Team Providers Care Stave Machine Tender Name Role Phone Charlee Leone MD Primary [...] from 06/24/2018:Stage IA(cT1b, cN0(sn), cM0, G2, ER+, SC+, HER2-) - Signed by Carlos Rodriguez DO on 06/24/2018 Overview (04/27/2018): Added automatically from request for surgery [id number] Immunizations Immunization Administration Dates Next Due Influenza, Unspecified 11/12/2018,11/08/2017 Pneumococcal Conjugate, Unspecified 02/08/2015 ZOSTER LIVE 02/08/2017 Surgical History Surgery Date Site/Laterality Comments HYSTERECTOMY 02/08/2014 - 02/07/2015 EYE SURGERY 02/08/2014 - 02/07/2015 Left CARPAL TUNNEL RELEASE 02/09/2016 - 02/07/2017 Right CATARACT EXTRACTION BREAST SURGERY Medical History Medical History Date Comments Diabetes Osteoporosis Cataract cortical, senile, bilateral Hypertension Renal [...] on file Legal Sex Female 9:03 PM LEARNING COACH Gender Identity Not on file Sexual Orientation [...] Vaccine (#1) 2024 11/12/2018, 2017 Insurance MEDICARE [facility] MEDICARE [facility] Care Teams Stave Machine Tender Relationship Specialty Start Date End Date Charlee Leone MD [address] [place], [place] [phone] PCP - General Internal Medicine 04/08/18
== END 2024-12-04 11:53 | disposition home or self-care (01) ==
LOC: CHSIMG 11:53
PROVIDERS: PCP Internal Medicine; Visit Provider Internal Medicine
DX: Z78.0 Asymptomatic menopausal state (principal); M85.89 Other specified disorders of bone density and structure, multiple sites
CPT/HCPCS: 77080

== ENCOUNTER 2024-12-13 10:59 | Outpatient (CLI) | payer MEDICARE, SELFPAY ==
[2024-12-13 11:27] LABS: Total Protein Urine Random < 7 mg/dL; Ur Ttl Prot Creatinine Ratio 0.06 mg/mg (0-0.20)
[2024-12-13 13:13] LABS: Albumin Level 4.5 g/dL (3.5-5.1); Anion Gap 11 mmol/L (4-12); Blood Urea Nitrogen 24 mg/dL (7-17); Calcium 9.3 mg/dL (8.4-10.2); Carbon Dioxide 23 mmol/L (22-30); Chloride 103 mmol/L (98-107); Estimated Glomerular Filt Rate 29; Glucose 112 mg/dL (65-110); Osmolality Calculated 289 mOsm/kg (285-295); Potassium 4.3 mmol/L (3.4-5.0); Sodium 137 mmol/L (137-145)
--- OUTSIDE RECORDS SUMMARY | 2024-12-14 10:45 | XMS_ITS | Clinical Summary ---
Author Organization [facility] Address [facility] [place] [address] Care Team Providers Care Associate Professor Of Church Music Name Role Phone Charlee Leone MD Primary [...] from 06/24/2018:Stage IA(cT1b, cN0(sn), cM0, G2, ER+, WA+, HER2-) - Signed by Carlos Rodriguez DO on 06/24/2018 Overview (04/27/2018): Added automatically from request for surgery [id number] Immunizations Immunization Administration Dates Next Due Influenza, [...] on file Legal Sex Female 9:03 PM STATISTICAL METHODS PROFESSOR Gender Identity Not on file Sexual Orientation [...] Vaccine (#1) 2024 11/12/2018, 2017 Insurance MEDICARE [facility] Care Teams Associate Professor Of Church Music Relationship Specialty Start Date End Date Charlee Leone MD [address] [place], [place] [id number] PCP - General Internal Medicine 04/08/18
--- OUTSIDE RECORDS SUMMARY | 2024-12-14 10:45 | XMS_ITS | Clinical Summary ---
Author Organization [facility] Address [address] [place] [address] Care Team Providers Care Second Watch Sergeant Name Role Phone Unavailable Primary Care Provider [...] Comments Blood Pressure 141/68 03/01/2014 3:44 PM VPK TEACHER Pulse 90 03/01/2014 3:43 PM VPK TEACHER Temperature - - Respiratory Rate 24 03/01/2014 3:43 PM VPK TEACHER Oxygen Saturation - - Inhaled Oxygen Concentration - - Weight 57.7 kg (127 lb 3.2 oz) 03/01/2014 3:43 P M VPK TEACHER Height 157.5 cm (5' 2) 03/01/2014 3:43 PM VPK TEACHER Body Mass Index 23.27 03/01/2014 3:43 PM VPK TEACHER Plan of Treatment Health Maintenance Due Date [...]
== END 2024-12-13 11:00 | disposition home or self-care (01) ==
LOC: CHSLAB 11:05
PROVIDERS: PCP Internal Medicine; Visit Provider Internal Medicine Nephrology
DX: I12.9 Hypertensive chronic kidney disease with stage 1 through stage 4 chronic kidney disease, or unspecified chronic kidney disease (principal); N18.4 Chronic kidney disease, stage 4 (severe); E11.22 Type 2 diabetes mellitus with diabetic chronic kidney disease
CPT/HCPCS: 36415; 80069; 82570; 84156

== ENCOUNTER 2025-01-22 13:06 | Outpatient (CLI) | payer MEDICARE, SELFPAY ==
--- NOTE | ~2025-01-22 | MM_ITS ---
EXAMINATION: MM screening [facility] BI w sita HISTORY: Screening TECHNIQUE: Craniocaudal and mediolateral oblique 3-D tomosynthesis images were obtained and synthetic 2-D images were generated. CAD analysis was submitted and interpreted. COMPARISON: Comparison to multiple prior studies sequentially, with oldest reviewed study dated 09/04/2014. BREAST PARENCHYMAL COMPOSITION: Not Dense: There are scattered areas of fibroglandular density. FINDINGS: There is no evidence of suspicious mass, calcification, or architectural distortion to suggest malignancy in either breast. Scattered benign-appearing calcifications are present. IMPRESSION: 1. No mammographic evidence of malignancy. 2. Recommend routine screening mammography in one year. BI-RADS Category 2: Benign finding(s). Reviewed, dictated and finalized at location A. MOBILE SERVICE WRITER
== END 2025-01-22 13:07 | disposition home or self-care (01) ==
LOC: CHSIMG 13:07
PROVIDERS: PCP Internal Medicine; Visit Provider Internal Medicine
DX: Z12.31 Encounter for screening mammogram for malignant neoplasm of breast (principal)
CPT/HCPCS: 77063; 77067